=== PATIENT | male | born 1955 | race Two or more races ===

== ENCOUNTER 2018-12-03 16:45 | Emergency (ER) | payer MEDICAID ==
[~2018-12-03] VITALS: Ht 170.2 cm; Wt 79.4 kg
[~2018-12-03 16:45] MED LIST: ASPI-1265 PO; ATOR20TA PO; LANTUS SQ; LOP25T PO; METF500T PO; NORCO10T PO; [UNRECOGNIZED DRUG - CODE] PO
[2018-12-03 16:53] VITALS: BP 133/71
== END 2018-12-03 19:33 | disposition home or self-care (01) ==
LOC: ER 16:46
DX: G89.29 Other chronic pain (principal); M54.5 Low back pain; E11.42 Type 2 diabetes mellitus with diabetic polyneuropathy; I25.10 Atherosclerotic heart disease of native coronary artery without angina pectoris; I10 Essential (primary) hypertension; I25.2 Old myocardial infarction; Z90.49 Acquired absence of other specified parts of digestive tract; Z98.890 Other specified postprocedural states; Z95.5 Presence of coronary angioplasty implant and graft; Z79.82 Long term (current) use of aspirin; Z79.4 Long term (current) use of insulin; Z79.899 Other long term (current) drug therapy
CPT/HCPCS: 99281

== ENCOUNTER 2019-06-08 13:59 | Emergency (ER) | payer MEDICAID, OTHER ==
[~2019-06-08] VITALS: Ht 165.1 cm; Wt 76.7 kg
[~2019-06-08 13:59] MED LIST changes: +GABA800T11 PO; +HYDR-4353 PO; +INSU100V36 SQ; +LISI-644 PO; +METF1000 PO; +MULT-1085 PO
--- NOTE | 2019-06-08 14:48 | NUR ---
TO CT WITH PATIENT AT THIS TIME.
--- NOTE | 2019-06-08 14:59 | NUR ---
BACK TO ROOM FROM CT AT THIS ITNC, NO SIGNS OF DISTRESS NOTED.
[2019-06-08 15:26] LABS: BASOPHILS # (AUTO) 0.1 X10'3 (0-0.2); BASOPHILS % (AUTO) 1.2 % (0-1); EOSINOPHILS # (AUTO) 0.2 X10'3 (0-0.9); EOSINOPHILS % (AUTO) 2.5 % (0-6); HEMATOCRIT 39.7 % (42.0-52.0); HEMOGLOBIN 13.4 g/dl (14.0-17.9); LYMPHOCYTES # (AUTO) 2.9 X10'3 (1.1-4.8); LYMPHOCYTES % (AUTO) 31.6 % (21-51); MEAN CORPUSCULAR HEMOGLOBIN 30.1 PG (27.0-31.0); MEAN CORPUSCULAR HGB CONC 33.8 g/dL (33.0-36.5); MEAN PLATELET VOLUME 8.5 FL (7.4-10.4); MONOCYTES # (AUTO) 0.5 X10'3 (0-0.9); MONOCYTES % (AUTO) 5.2 % (2-12); NEUTROPHILS # (AUTO) 5.5 X10'3 (1.8-7.7); NEUTROPHILS % (AUTO) 59.5 % (42-75); PLATELET COUNT 271 X10'3 (140-440); RED BLOOD COUNT 4.46 X10'6 (4.70-6.10); RED CELL DISTRIBUTION WIDTH 14.3 % (11.5-14.5); WHITE BLOOD COUNT 9.2 X10'3 (4.5-11.0)
[2019-06-08 15:27] LABS: ALANINE AMINOTRANSFERASE 28 U/L (12-78); ALBUMIN 3.9 G/DL (3.4-5.0); ALBUMIN/GLOBULIN RATIO 1.4 (1.1-1.5); ALKALINE PHOSPHATASE 70 IU/L (46-116); ANION GAP 4 (8-16); ASPARTATE AMINO TRANSFERASE 15 U/L (10-37); BILIRUBIN,TOTAL 0.6 MG/DL (0.1-1.0); BLOOD UREA NITROGEN 13 MG/DL (7-18); BUN/CREATININE RATIO 15.9 (5.4-32.0); CALCIUM 8.4 MG/DL (8.5-10.1); CHLORIDE 103 MMOL/L (99-107); CREATININE 0.82 MG/DL (0.60-1.10); GLUCOSE 323 MG/DL (70-104); POTASSIUM 4.4 MMOL/L (3.5-5.1); SODIUM 137 MMOL/L (135-145); TOTAL CARBON DIOXIDE 29.6 MMOL/L (24-32); TOTAL PROTEIN 6.7 G/DL (6.4-8.2); eGFR > 90 ML/MIN
[2019-06-08 15:34] LABS: MAGNESIUM 1.7 MG/DL (1.5-2.4)
--- NOTE | 2019-06-08 15:46 | NUR ---
[phone]
[2019-06-08] MEDS ORDERED: HYDROcodone/acetaminophen 5mg/325mg tablet PO ONE (18:05)
[2019-06-08 18:18] VITALS: BP 162/86
[2019-06-08] MEDS ORDERED: insulin glargine (Lantus) pen - multi-dose SQ ONE (18:35)
== END 2019-06-08 18:56 | disposition home or self-care (01) ==
LOC: ER 14:00
DX: E11.65 Type 2 diabetes mellitus with hyperglycemia (principal); R55 Syncope and collapse; E11.43 Type 2 diabetes mellitus with diabetic autonomic (poly)neuropathy; I25.10 Atherosclerotic heart disease of native coronary artery without angina pectoris; I10 Essential (primary) hypertension; G89.29 Other chronic pain; Z79.82 Long term (current) use of aspirin; Z79.899 Other long term (current) drug therapy; Z79.4 Long term (current) use of insulin; Z90.49 Acquired absence of other specified parts of digestive tract
CPT/HCPCS: 36415; 70450; 71045; 80053; 82948; 83735; 83880; 84484; 85025; 93005; 96372; 99284; J1815

== ENCOUNTER 2020-03-28 12:41 | Emergency (ER) | payer MEDICAID, OTHER ==
[~2020-03-28] VITALS: Ht 167.6 cm; Wt 72.2 kg
[2020-03-28] MEDS ORDERED: proparacaine 0.5% ophthalmic drops 15ml EACHEYE ONE (14:05)
--- NOTE | 2020-03-28 14:40 | NUR ---
RELIEVING RN FOR BREAK, PT AMB WITH SLIGHTLY UNSTEADY GAIT TO TRIAGE AREA FOR VISUAL ACUITY PER DR LATIF, RT EYE 20/70, LT EYE20/30, BOTH EYES 20/30 DR LATIF AWARE, WAITING FOR CONSULTATION WITH EYE PROVIDER
--- NOTE | 2020-03-28 14:42 | NUR ---
VISUAL ACUITY DONE WITHOUT GLASSES, PT SAID HE USES GLASSES ONLY FOR READING
[2020-03-28 15:14] VITALS: BP 148/85
== END 2020-03-28 15:16 | disposition home or self-care (01) ==
LOC: ER 12:43
DX: H43.11 Vitreous hemorrhage, right eye (principal); R05 Cough; E11.42 Type 2 diabetes mellitus with diabetic polyneuropathy; I25.10 Atherosclerotic heart disease of native coronary artery without angina pectoris; I10 Essential (primary) hypertension; I25.2 Old myocardial infarction; G89.29 Other chronic pain; F17.200 Nicotine dependence, unspecified, uncomplicated; Z90.49 Acquired absence of other specified parts of digestive tract; Z98.890 Other specified postprocedural states; Z79.82 Long term (current) use of aspirin; Z79.4 Long term (current) use of insulin; Z79.899 Other long term (current) drug therapy
CPT/HCPCS: 99284

== ENCOUNTER 2020-05-02 15:29 | Emergency (ER) | payer MEDICAID ==
[~2020-05-02] VITALS: Ht 167.6 cm; Wt 0.7 kg
[2020-05-02] MEDS ORDERED: normal saline 1000ML IV soln IVB ONE (17:55)
[2020-05-02] MEDS ORDERED: normal saline 1000ml 1,000 ML IV ONE ×2 (18:10→19:10)
[2020-05-02 18:29] VITALS: BP 192/92
[2020-05-02 18:35] LABS: BASOPHILS # (AUTO) 0.1 X10'3 (0-0.2); BASOPHILS % (AUTO) 1.1 % (0-1); EOSINOPHILS # (AUTO) 0.2 X10'3 (0-0.9); EOSINOPHILS % (AUTO) 1.8 % (0-6); HEMATOCRIT 44.5 % (42.0-52.0); HEMOGLOBIN 14.8 g/dl (14.0-17.9); LYMPHOCYTES % (AUTO) 25.8 % (21-51); MEAN CORPUSCULAR HEMOGLOBIN 29.8 PG (27.0-31.0); MEAN CORPUSCULAR HGB CONC 33.3 g/dL (33.0-36.5); MEAN CORPUSCULAR VOLUME 89.8 FL (78-98); MEAN PLATELET VOLUME 9.1 FL (7.4-10.4); MONOCYTES # (AUTO) 0.8 X10'3 (0-0.9); MONOCYTES % (AUTO) 6.7 % (2-12); NEUTROPHILS # (AUTO) 7.4 X10'3 (1.8-7.7); NEUTROPHILS % (AUTO) 64.6 % (42-75); PLATELET COUNT 247 X10'3 (140-440); RED BLOOD COUNT 4.96 X10'6 (4.70-6.10); RED CELL DISTRIBUTION WIDTH 14.5 % (11.5-14.5); WHITE BLOOD COUNT 11.5 X10'3 (4.5-11.0)
[2020-05-02 18:55] LABS: ALANINE AMINOTRANSFERASE 24 U/L (12-78); ALBUMIN 4.1 G/DL (3.4-5.0); ALBUMIN/GLOBULIN RATIO 1.3 (1.1-1.5); ALKALINE PHOSPHATASE 98 IU/L (46-116); ANION GAP 5 (8-16); ASPARTATE AMINO TRANSFERASE 15 U/L (10-37); BILIRUBIN,TOTAL 0.6 MG/DL (0.1-1.0); BLOOD UREA NITROGEN 17 MG/DL (7-18); BUN/CREATININE RATIO 13.2 (5.4-32.0); CALCIUM 8.7 MG/DL (8.5-10.1); CHLORIDE 98 MMOL/L (99-107); CREATININE 1.29 MG/DL (0.60-1.10); POTASSIUM 4.3 MMOL/L (3.5-5.1); SODIUM 134 MMOL/L (135-145); TOTAL CARBON DIOXIDE 30.9 MMOL/L (24-32); TOTAL PROTEIN 7.3 G/DL (6.4-8.2); eGFR 56 ML/MIN
[2020-05-02 18:57] LABS: CLARITY,URINE CLEAR (Clear); COLOR,URINE STRAW (Yellow); GLUCOSE, URINE >=1000 mg/dl (Neg); KETONES,URINE NEGATIVE (Neg); LEUKOCYTE ESTERASE ,URINE NEGATIVE (Neg); NITRITES, URINE NEGATIVE (Neg); OCCULT BLOOD,URINE NEGATIVE (Neg); PROTEIN,URINE NEGATIVE (Neg); UROBILINOGEN,URINE 0.2 E.U/dL (0.2-1.0)
[2020-05-02 19:00] LABS: UA COLLECTION TYPE CLN CATCH MIDSTREAM
[2020-05-02 19:02] LABS: SQUAMOUS EPITHELIAL CELL,UR FEW /LPF (FEW)
[2020-05-02 19:04] LABS: GLUCOSE 575 MG/DL (70-104)
[2020-05-02 19:04] LABS: BACTERIA,URINE NONE SEEN /HPF (Neg); MUCUS STRANDS NONE SEEN /LPF (Neg); RBC,URINE 0-2 /HPF (0-2); WBC,URINE 0-4 /HPF (0-4)
[2020-05-02] MEDS ORDERED: insulin regular, human 10 units/0.1 ml syringe SQ ONE (19:10)
[2020-05-02] MEDS ORDERED: acetaminophen 325mg tablet PO ONE (19:35)
== END 2020-05-02 20:10 | disposition home or self-care (01) ==
LOC: ER 15:30
DX: E11.65 Type 2 diabetes mellitus with hyperglycemia (principal); G62.9 Polyneuropathy, unspecified; I25.10 Atherosclerotic heart disease of native coronary artery without angina pectoris; I10 Essential (primary) hypertension; I21.9 Acute myocardial infarction, unspecified; E11.9 Type 2 diabetes mellitus without complications; G89.29 Other chronic pain; M54.9 Dorsalgia, unspecified; Z90.49 Acquired absence of other specified parts of digestive tract; Z79.899 Other long term (current) drug therapy; Z79.82 Long term (current) use of aspirin; Z79.84 Long term (current) use of oral hypoglycemic drugs
CPT/HCPCS: 36415; 80053; 81001; 82948; 85025; 93005; 96360; 96361; 96372; 99285; J1815; J7030; 71045

== ENCOUNTER 2022-11-07 15:00 | Emergency (ER) | payer MEDICAID ==
[~2022-11-07] VITALS: Ht 170.2 cm; Wt 81.4 kg
[2022-11-07 15:39] LABS: BASOPHILS # (AUTO) 0.1 X10'3 (0-0.2); BASOPHILS % (AUTO) 1.2 % (0-1); EOSINOPHILS # (AUTO) 0.2 X10'3 (0-0.9); EOSINOPHILS % (AUTO) 2.5 % (0-6); HEMATOCRIT 35.8 % (42.0-52.0); HEMOGLOBIN 11.7 g/dl (14.0-17.9); LYMPHOCYTES # (AUTO) 2.5 X10'3 (1.1-4.8); LYMPHOCYTES % (AUTO) 32.5 % (21-51); MEAN CORPUSCULAR HEMOGLOBIN 28.8 PG (27.0-31.0); MEAN CORPUSCULAR HGB CONC 32.8 g/dL (33.0-36.5); MEAN CORPUSCULAR VOLUME 87.7 FL (78-98); MEAN PLATELET VOLUME 8.5 FL (7.4-10.4); MONOCYTES # (AUTO) 0.7 X10'3 (0-0.9); MONOCYTES % (AUTO) 8.8 % (2-12); NEUTROPHILS # (AUTO) 4.3 X10'3 (1.8-7.7); PLATELET COUNT 294 X10'3 (140-440); RED BLOOD COUNT 4.08 X10'6 (4.70-6.10); RED CELL DISTRIBUTION WIDTH 15.6 % (11.5-14.5); WHITE BLOOD COUNT 7.8 X10'3 (4.5-11.0)
[2022-11-07 16:12] LABS: ALANINE AMINOTRANSFERASE 40 U/L (12-78); ALBUMIN 4.1 G/DL (3.4-5.0); ALBUMIN/GLOBULIN RATIO 1.4 (1.1-1.5); ALKALINE PHOSPHATASE 51 IU/L (46-116); ANION GAP 5 (8-16); ASPARTATE AMINO TRANSFERASE 25 U/L (10-37); BILIRUBIN,TOTAL 0.6 MG/DL (0.1-1.0); BLOOD UREA NITROGEN 20 MG/DL (7-18); BUN/CREATININE RATIO 18.5 (10.0-20.0); CALCIUM 8.8 MG/DL (8.5-10.1); CHLORIDE 105 MMOL/L (99-107); CREATININE 1.08 MG/DL (0.60-1.10); GLUCOSE 96 MG/DL (70-104); POTASSIUM 4.7 MMOL/L (3.5-5.1); SODIUM 141 MMOL/L (135-145); TOTAL CARBON DIOXIDE 30.8 MMOL/L (24-32); eGFR 69 ML/MIN
[2022-11-07 17:22] VITALS: BP 158/72
== END 2022-11-07 18:34 | disposition home or self-care (01) ==
LOC: ER 15:00
DX: R55 Syncope and collapse (principal); I25.10 Atherosclerotic heart disease of native coronary artery without angina pectoris; I10 Essential (primary) hypertension; I25.2 Old myocardial infarction; E11.9 Type 2 diabetes mellitus without complications; G89.29 Other chronic pain; Z90.49 Acquired absence of other specified parts of digestive tract; Z98.890 Other specified postprocedural states; Z79.82 Long term (current) use of aspirin; Z79.4 Long term (current) use of insulin; Z79.899 Other long term (current) drug therapy
CPT/HCPCS: 36415; 71045; 73564; 80053; 83880; 84484; 85025; 93005; 99285

== ENCOUNTER 2023-02-05 21:35 | Emergency (ER) | payer MEDICAID ==
[~2023-02-05] VITALS: Ht 167.6 cm; Wt 68.2 kg
[2023-02-05 21:49] VITALS: TEMP 98
[2023-02-05 22:53] LABS: BASOPHILS # (AUTO) 0.1 X10'3 (0-0.2); BASOPHILS % (AUTO) 1.2 % (0-1); EOSINOPHILS # (AUTO) 0.3 X10'3 (0-0.9); EOSINOPHILS % (AUTO) 3.5 % (0-6); HEMATOCRIT 38.4 % (42.0-52.0); HEMOGLOBIN 12.6 g/dl (14.0-17.9); LYMPHOCYTES # (AUTO) 2.9 X10'3 (1.1-4.8); LYMPHOCYTES % (AUTO) 33.2 % (21-51); MEAN CORPUSCULAR HGB CONC 32.9 g/dL (33.0-36.5); MEAN PLATELET VOLUME 8.5 FL (7.4-10.4); MONOCYTES # (AUTO) 0.6 X10'3 (0-0.9); MONOCYTES % (AUTO) 6.7 % (2-12); NEUTROPHILS # (AUTO) 4.9 X10'3 (1.8-7.7); NEUTROPHILS % (AUTO) 55.4 % (42-75); PLATELET COUNT 389 X10'3 (140-440); RED BLOOD COUNT 4.37 X10'6 (4.70-6.10); RED CELL DISTRIBUTION WIDTH 15.1 % (11.5-14.5); WHITE BLOOD COUNT 8.8 X10'3 (4.5-11.0)
[2023-02-05 23:06] LABS: ALANINE AMINOTRANSFERASE 17 U/L (12-78); ALBUMIN 3.5 G/DL (3.4-5.0); ALBUMIN/GLOBULIN RATIO 0.9 (1.1-1.5); ALKALINE PHOSPHATASE 68 IU/L (46-116); ANION GAP 9 (8-16); ASPARTATE AMINO TRANSFERASE 13 U/L (10-37); BILIRUBIN,TOTAL 0.3 MG/DL (0.1-1.0); BLOOD UREA NITROGEN 24 MG/DL (7-18); BUN/CREATININE RATIO 18.5 (10.0-20.0); CALCIUM 8.7 MG/DL (8.5-10.1); CHLORIDE 100 MMOL/L (99-107); GLUCOSE 242 MG/DL (70-104); LIPASE < 50 U/L (73-393); POTASSIUM 4.7 MMOL/L (3.5-5.1); SODIUM 140 MMOL/L (135-145); TOTAL CARBON DIOXIDE 31.3 MMOL/L (24-32); TOTAL PROTEIN 7.5 G/DL (6.4-8.2); eCRCL 51 ML/MIN; eGFR 55 ML/MIN
[2023-02-06 00:39] LABS: BILIRUBIN,URINE NEGATIVE (Neg); CLARITY,URINE SLIGHTLY CLOUDY (Clear); COLOR,URINE YELLOW (Yellow); GLUCOSE, URINE 500 mg/dl (Neg); KETONES,URINE NEGATIVE (Neg); LEUKOCYTE ESTERASE ,URINE NEGATIVE (Neg); NITRITES, URINE NEGATIVE (Neg); OCCULT BLOOD,URINE NEGATIVE (Neg); PH,URINE 5.5 (4.8-8.0); PROTEIN,URINE 100 mg/dl (Neg); UROBILINOGEN,URINE 0.2 E.U/dL (0.2-1.0)
[2023-02-06] MEDS ORDERED: acetaminophen 325mg tablet PO ONE (00:40)
[2023-02-06] MEDS ORDERED: ketorolac trometh. 30mg/ml inj. IV ONE (00:40)
[2023-02-06] MEDS ORDERED: ondansetron/PF 4mg/2ml inj IV ONE (00:40)
[2023-02-06] MEDS ORDERED: normal saline 1000ml 1,000 ML IV ONE (00:40)
[2023-02-06 00:45] LABS: UA COLLECTION TYPE CLN CATCH MIDSTREAM
[2023-02-06 00:46] LABS: HYALINE CASTS >30 /LPF (NEGATIVE); SQUAMOUS EPITHELIAL CELL,UR FEW /LPF (FEW)
[2023-02-06 00:47] LABS: AMORPHOUS URATES 1+; BACTERIA,URINE NONE SEEN /HPF (Neg); WBC,URINE 0-4 /HPF (0-4)
[2023-02-06] MEDS ORDERED: morphine 4 MG/ML inj SYRINge IV ONE (02:40)
[2023-02-06] MEDS ORDERED: methylnaltrexone br 12mg/0.6ml inj***SubQ only SQ ONE (04:10)
[2023-02-06] MEDS ORDERED: bisacodyl 5mg tablet.DR PO ONE (04:10)
[2023-02-06] MEDS ORDERED: DOCU-171 PO (04:12)
[2023-02-06 04:41] VITALS: BP 100/59; PULSE 70; RESP 16; O2SAT 100
== END 2023-02-06 04:43 | disposition home or self-care (01) ==
LOC: ER 21:36
DX: K59.00 Constipation, unspecified (principal); R10.12 Left upper quadrant pain; I10 Essential (primary) hypertension; E11.9 Type 2 diabetes mellitus without complications; Z79.82 Long term (current) use of aspirin; Z79.899 Other long term (current) drug therapy; Z79.84 Long term (current) use of oral hypoglycemic drugs; Z90.49 Acquired absence of other specified parts of digestive tract
CPT/HCPCS: 36415; 74176; 80053; 81001; 83690; 85025; 96361; 96372; 96374; 96375; 99285; J1885; J2212; J2270; J2405; J7030

== ENCOUNTER 2023-08-08 12:34 | Inpatient (IN) | payer MEDICAID ==
[~2023-08-08] VITALS: Ht 170.2 cm; Wt 74.2 kg
[~2023-08-08 12:34] MED LIST changes: +CARB100T50 PO; +CLOP75TA34 PO; +DOCU-171 PO; +GABA600T13 PO; -GABA800T11 PO; +HYDR-3972 PO; -HYDR-4353 PO; +KEN0.1O TOP; -LISI-644 PO; +LISI5TAB22 PO; -LOP25T PO; -METF1000 PO; -METF500T PO; -NORCO10T PO; -[UNRECOGNIZED DRUG - CODE] PO
[2023-08-08] MEDS: normal saline 1000ml 1,000 ML IV ONE (13:20)
[2023-08-08 13:56] LABS: BASOPHILS # (AUTO) 0.1 X10'3 (0-0.2); BASOPHILS % (AUTO) 0.9 % (0-1); EOSINOPHILS % (AUTO) 0.4 % (0-6); HEMATOCRIT 23.6 % (42.0-52.0); HEMOGLOBIN 7.6 g/dl (14.0-17.9); LYMPHOCYTES # (AUTO) 1.4 X10'3 (1.1-4.8); LYMPHOCYTES % (AUTO) 14.9 % (21-51); MEAN CORPUSCULAR HEMOGLOBIN 26.2 PG (27.0-31.0); MEAN CORPUSCULAR HGB CONC 32.3 g/dL (33.0-36.5); MEAN PLATELET VOLUME 7.4 FL (7.4-10.4); MONOCYTES # (AUTO) 0.6 X10'3 (0-0.9); MONOCYTES % (AUTO) 6.1 % (2-12); NEUTROPHILS # (AUTO) 7.3 X10'3 (1.8-7.7); NEUTROPHILS % (AUTO) 77.7 % (42-75); PLATELET COUNT 481 X10'3 (140-440); RED BLOOD COUNT 2.91 X10'6 (4.70-6.10); RED CELL DISTRIBUTION WIDTH 17.6 % (11.5-14.5); WHITE BLOOD COUNT 9.4 X10'3 (4.5-11.0)
[2023-08-08 13:56] LABS: BILIRUBIN,URINE NEGATIVE (Neg); CLARITY,URINE CLEAR (Clear); COLOR,URINE YELLOW (Yellow); GLUCOSE, URINE NEGATIVE (Neg); KETONES,URINE NEGATIVE (Neg); LEUKOCYTE ESTERASE ,URINE NEGATIVE (Neg); NITRITES, URINE NEGATIVE (Neg); OCCULT BLOOD,URINE NEGATIVE (Neg); PROTEIN,URINE 100 mg/dl (Neg); UROBILINOGEN,URINE 0.2 E.U/dL (0.2-1.0)
[2023-08-08 13:59] LABS: UA COLLECTION TYPE VOIDED
[2023-08-08 14:01] LABS: BACTERIA,URINE NONE SEEN /HPF (Neg)
[2023-08-08 14:02] LABS: SQUAMOUS EPITHELIAL CELL,UR MODERATE /LPF (FEW); TRANSITIONAL EPI CELLS,URINE FEW /HPF
[2023-08-08 14:10] LABS: URINE AMPHETAMINE SCREEN NEGATIVE (Neg); URINE BARBITUATE SCREEN NEGATIVE (Neg); URINE BENZODIAZEPINES SCREEN NEGATIVE (Neg); URINE CANNABINOID SCREEN NEGATIVE (Neg); URINE COCAINE SCREEN NEGATIVE (Neg); URINE METHADONE SCREEN NEGATIVE (Neg); URINE OPIATE SCREEN POSITIVE (Neg); URINE PHENCYCLIDINE SCREEN NEGATIVE (Neg)
[2023-08-08 14:14] LABS: ALANINE AMINOTRANSFERASE 30 U/L (12-78); ALBUMIN 2.3 G/DL (3.4-5.0); ALBUMIN/GLOBULIN RATIO 0.4 (1.1-1.5); ALKALINE PHOSPHATASE 171 IU/L (46-116); ANION GAP 5 (8-16); ASPARTATE AMINO TRANSFERASE 37 U/L (10-37); BILIRUBIN,DIRECT 0.1 MG/DL (0-0.3); BILIRUBIN,TOTAL 0.3 MG/DL (0.1-1.0); BLOOD UREA NITROGEN 64 MG/DL (7-18); BUN/CREATININE RATIO 48.5 (10.0-20.0); C-REACTIVE PROTEIN 9.01 MG/DL (0.0-0.5); CALCIUM 7.7 MG/DL (8.5-10.1); CHLORIDE 103 MMOL/L (99-107); CREATININE 1.32 MG/DL (0.60-1.10); GLUCOSE 174 MG/DL (70-104); MAGNESIUM 2.1 MG/DL (1.5-2.4); POTASSIUM 4.5 MMOL/L (3.5-5.1); SODIUM 137 MMOL/L (135-145); TOTAL CARBON DIOXIDE 28.6 MMOL/L (24-32); TOTAL PROTEIN 7.8 G/DL (6.4-8.2); eCRCL 52 ML/MIN; eGFR 54 ML/MIN
[2023-08-08] MEDS: acetaminophen 325mg tablet PO ONE (15:06)
[2023-08-08] MEDS: cefazolin 2gm/D5W 100mL 100 ML IV ONE (16:00)
[2023-08-08] MEDS ORDERED: morphine 2 MG/ML inj. syringe IV PRN ×2 (17:00)
[2023-08-08] MEDS ORDERED: magnesium 4gm in 100ml NS 100 ML IV PRN (17:00)
[2023-08-08] MEDS ORDERED: diphenhydrAMINE 25mg capsule PO PRN (17:00)
[2023-08-08] MEDS ORDERED: bisacodyl 10mg suppository rectal RC PRN (17:00)
[2023-08-08] MEDS ORDERED: glucagon, human recombinant 1mg kit SUBCUT PRN (17:00)
[2023-08-08] MEDS: normal saline 1000ml 1,000 ML IV SCH (17:00)
[2023-08-08] MEDS ORDERED: magnesium 2GM in 50ml NS 50 ML IV PRN (17:00)
[2023-08-08] MEDS ORDERED: dextrose 50%-water 50ml dispensing syringe IV PRN ×2 (17:00)
[2023-08-08] MEDS: MESSAGE TO PHARMACY PO ONE (17:00)
[2023-08-08] MEDS ORDERED: mag hydrox/Alum hydrox/simeth 30ml oral suspension PO PRN (17:00)
[2023-08-08] MEDS ORDERED: DEXTROSE 15 GM of carb/4 tabs (each vial/BOTTLE has 4 tablets) PO PRN ×2 (17:00)
[2023-08-08] MEDS ORDERED: magnesium Cl slow-release 64mg tablet PO PRN (17:00)
[2023-08-08] MEDS ORDERED: potassium Cl 40MEQ/1/2NS 520ml 520 ML IV PRN (17:00)
[2023-08-08] MEDS ORDERED: magnesium hydroxide 30ml (MOM) UD suspension PO PRN (17:00)
[2023-08-08] MEDS ORDERED: acetaminophen 325mg tablet PO PRN ×2 (17:00)
[2023-08-08] MEDS ORDERED: potassium Cl 20 mEq SR tablet PO PRN ×2 (17:00)
[2023-08-08] MEDS: mupirocin 2% ointment 22GM TP ONE (17:50)
[2023-08-08] MEDS: K and/or MAG REPLACEMENT MC SCH (20:00)
[2023-08-08] MEDS ORDERED: cefepime 2g/NS 100ml ADVANTAGE 100 ML IV ONE (20:00)
[2023-08-08] MEDS ORDERED: metroNIDAZOLE-Flagyl 500mg/NS 100 ML IV ONE (20:00)
[2023-08-08] MEDS: docusate sod 100mg capsule PO SCH (20:00)
[2023-08-08] MEDS: insulin glargine (Lantus) pen - multi-dose SQ SCH (21:00)
[2023-08-08] MEDS: metroNIDAZOLE-Flagyl 500mg/NS 100 ML IV SCH (21:00)
[2023-08-08] MEDS: morphine 4 MG/ML inj SYRINge IV ONE (21:07)
[2023-08-08] MEDS: cefepime 1GM/NS ADD-VANTAGE 100 ML IV SCH (22:16)
[2023-08-08] MEDS: vancomycin/NS 1 GM ADD-VANTAGE 250 ML IV SCH (22:17)
[2023-08-09] MEDS: heparin, porcine 5000 units/ml vial SQ SCH (00:20)
[2023-08-09 04:08] LABS: BILIRUBIN,URINE NEGATIVE (Neg); CLARITY,URINE CLEAR (Clear); COLOR,URINE YELLOW (Yellow); GLUCOSE, URINE NEGATIVE (Neg); KETONES,URINE NEGATIVE (Neg); LEUKOCYTE ESTERASE ,URINE NEGATIVE (Neg); NITRITES, URINE NEGATIVE (Neg); OCCULT BLOOD,URINE TRACE-INTACT (Neg); PH,URINE 5.5 (4.8-8.0); PROTEIN,URINE 30 mg/dl (Neg); UROBILINOGEN,URINE 0.2 E.U/dL (0.2-1.0)
[2023-08-09 04:11] LABS: UA COLLECTION TYPE VOIDED
[2023-08-09 04:15] LABS: BACTERIA,URINE FEW /HPF (Neg); SQUAMOUS EPITHELIAL CELL,UR FEW /LPF (FEW); TRANSITIONAL EPI CELLS,URINE FEW /HPF
[2023-08-09] MEDS: HYDROcodone/acetaminophen 10/325mg tab PO PRN (07:53)
[2023-08-09] MEDS ORDERED: levoFLOXACIN-Levaquin 250mg/D5 50 ML IV ONE (08:00)
[2023-08-09 09:34] LABS: BASOPHILS % (AUTO) 0.3 % (0-1); EOSINOPHILS % (AUTO) 0.2 % (0-6); HEMATOCRIT 23.1 % (42.0-52.0); HEMOGLOBIN 7.5 g/dl (14.0-17.9); LYMPHOCYTES # (AUTO) 1.8 X10'3 (1.1-4.8); LYMPHOCYTES % (AUTO) 17.7 % (21-51); MEAN CORPUSCULAR HEMOGLOBIN 26.3 PG (27.0-31.0); MEAN CORPUSCULAR HGB CONC 32.2 g/dL (33.0-36.5); MEAN CORPUSCULAR VOLUME 81.7 FL (78-98); MEAN PLATELET VOLUME 7.2 FL (7.4-10.4); MONOCYTES # (AUTO) 0.9 X10'3 (0-0.9); MONOCYTES % (AUTO) 8.2 % (2-12); NEUTROPHILS # (AUTO) 7.7 X10'3 (1.8-7.7); NEUTROPHILS % (AUTO) 73.6 % (42-75); PLATELET COUNT 479 X10'3 (140-440); RED BLOOD COUNT 2.83 X10'6 (4.70-6.10); RED CELL DISTRIBUTION WIDTH 17.7 % (11.5-14.5); WHITE BLOOD COUNT 10.5 X10'3 (4.5-11.0)
[2023-08-09 09:57] LABS: ALANINE AMINOTRANSFERASE 25 U/L (12-78); ALBUMIN 2.1 G/DL (3.4-5.0); ALBUMIN/GLOBULIN RATIO 0.4 (1.1-1.5); ALKALINE PHOSPHATASE 166 IU/L (46-116); ANION GAP 9 (8-16); ASPARTATE AMINO TRANSFERASE 41 U/L (10-37); BILIRUBIN,TOTAL 0.3 MG/DL (0.1-1.0); BLOOD UREA NITROGEN 46 MG/DL (7-18); BUN/CREATININE RATIO 40.4 (10.0-20.0); CALCIUM 7.3 MG/DL (8.5-10.1); CHLORIDE 109 MMOL/L (99-107); CREATININE 1.14 MG/DL (0.60-1.10); GLUCOSE 180 MG/DL (70-104); PHOSPHORUS 3.2 MG/DL (2.3-4.5); SODIUM 142 MMOL/L (135-145); TOTAL CARBON DIOXIDE 24.4 MMOL/L (24-32); TOTAL PROTEIN 7.5 G/DL (6.4-8.2); eCRCL 60 ML/MIN; eGFR 64 ML/MIN
[2023-08-09] MEDS ORDERED: AMLO2.5T2 PO (10:22)
[2023-08-09] MEDS ORDERED: LANTUS SUBCUT (10:34)
[2023-08-09] MEDS ORDERED: DOCU100C40 PO (10:34)
[2023-08-09] MEDS ORDERED: FURO20TA4 PO (10:34)
[2023-08-09] MEDS ORDERED: [UNRECOGNIZED DRUG - CODE] PO (10:34)
[2023-08-09] MEDS ORDERED: INSU100I61 (10:34)
[2023-08-09] MEDS ORDERED: LOP12.5T PO (10:34)
[2023-08-09] MEDS ORDERED: MULT-18 PO (10:41)
[2023-08-09] MEDS ORDERED: METR-349 PO (10:41)
[2023-08-09] MEDS ORDERED: WARF6TAB49 PO (10:41)
[2023-08-09] MEDS ORDERED: LEVO-65 PO (10:41)
[2023-08-09] MEDS: insulin Lispro (HumaLOG) vial - multi-dose SQ SCH (14:36)
[2023-08-09 19:05] LABS: INR 3.4 INR; PROTHROMBIN TIME 33.9 SECONDS (9.0-12.0)
[2023-08-09] MEDS: ringers solution, lacted 1,000 ML IV ONE (19:42)
[2023-08-09] MEDS ORDERED: albumin (human) 25% 100ml IV 100 ML IV ONE ×4 (19:45→19:50)
[2023-08-09 19:50] LABS: D-DIMER 0.72 MG/L FEU (0-0.50)
[2023-08-09] MEDS: metoprolol tartrate 12.5mg (1/2 tablet) PO SCH (20:00)
[2023-08-09 20:15] LABS: OSMOLALITY 312 MOSM/K (280-300)
[2023-08-09] MEDS: albumin (human) 25% 100ml IV 100 ML in normal saline 500ml IV soln 400 ML IV ONE (20:39)
[2023-08-09] MEDS ORDERED: warfarin 3mg tablet PO SCH (21:00)
[2023-08-09] MEDS: gabapentin 400mg capsule PO SCH (22:07)
[2023-08-09] MEDS: warfarin 4mg tablet PO ONE (22:10)
[2023-08-09 23:20] VITALS: BP 122/64; PULSE 101; RESP 16; TEMP 99.5; O2SAT 99
[2023-08-09] MEDS: HYDROcodone/acetaminophen 5mg/325mg tablet PO PRN (23:40)
[2023-08-09] MEDS: ondansetron/PF 4mg/2ml inj IV PRN (23:49)
[2023-08-10] VITALS (11 sets, daily range): BP systolic 95–150; BP diastolic 44–104; PULSE 82–96; RESP 16–18; TEMP 97.7–98.7; O2SAT 93–100
[2023-08-10] MEDS: normal saline 1000ml 1,000 ML IV SCH (02:00)
[2023-08-10] MEDS: VANCOMYCIN LEVEL IV ONE (04:30)
[2023-08-10 07:12] LABS: BASOPHILS # (AUTO) 0.1 X10'3 (0-0.2); BASOPHILS % (AUTO) 1.4 % (0-1); EOSINOPHILS % (AUTO) 0.3 % (0-6); LYMPHOCYTES # (AUTO) 2.4 X10'3 (1.1-4.8); LYMPHOCYTES % (AUTO) 28.8 % (21-51); MEAN CORPUSCULAR HEMOGLOBIN 26.8 PG (27.0-31.0); MEAN CORPUSCULAR HGB CONC 32.6 g/dL (33.0-36.5); MEAN CORPUSCULAR VOLUME 82.3 FL (78-98); MEAN PLATELET VOLUME 7.3 FL (7.4-10.4); MONOCYTES # (AUTO) 0.8 X10'3 (0-0.9); MONOCYTES % (AUTO) 9.7 % (2-12); NEUTROPHILS % (AUTO) 59.8 % (42-75); PLATELET COUNT 433 X10'3 (140-440); RED CELL DISTRIBUTION WIDTH 17.8 % (11.5-14.5); WHITE BLOOD COUNT 8.3 X10'3 (4.5-11.0)
[2023-08-10 07:20] LABS: INR 3.9 INR; PROTHROMBIN TIME 38.8 SECONDS (9.0-12.0)
[2023-08-10] MEDS: clopidogrel 75mg tablet PO SCH (07:23)
[2023-08-10] MEDS: atorvastatin 20mg tablet PO SCH (07:23)
[2023-08-10] MEDS: aspirin 81mg, enteric-coated 1 TAB TABLET.DR PO SCH (07:24)
[2023-08-10 07:25] LABS: ALANINE AMINOTRANSFERASE 215 U/L (12-78); ALBUMIN 2.2 G/DL (3.4-5.0); ALBUMIN/GLOBULIN RATIO 0.5 (1.1-1.5); ALKALINE PHOSPHATASE 568 IU/L (46-116); ANION GAP 7 (8-16); ASPARTATE AMINO TRANSFERASE 592 U/L (10-37); BILIRUBIN,TOTAL 0.6 MG/DL (0.1-1.0); BLOOD UREA NITROGEN 46 MG/DL (7-18); BUN/CREATININE RATIO 36.8 (10.0-20.0); CALCIUM 7.3 MG/DL (8.5-10.1); CHLORIDE 111 MMOL/L (99-107); CREATININE 1.25 MG/DL (0.60-1.10); GLUCOSE 167 MG/DL (70-104); POTASSIUM 4.1 MMOL/L (3.5-5.1); SODIUM 142 MMOL/L (135-145); TOTAL CARBON DIOXIDE 23.8 MMOL/L (24-32); TOTAL PROTEIN 6.8 G/DL (6.4-8.2); eCRCL 55 ML/MIN; eGFR 58 ML/MIN
[2023-08-10 07:26] LABS: MAGNESIUM 2.2 MG/DL (1.5-2.4); PHOSPHORUS 3.3 MG/DL (2.3-4.5); VANCOMYCIN,TROUGH 21.6 ug/mL (10.0-20.0)
[2023-08-10 07:33] LABS: HEMATOCRIT 18.1 % (42.0-52.0); HEMOGLOBIN 5.9 g/dl (14.0-17.9)
[2023-08-10] MEDS: CARBAMAZEPINE 100 MG PO SCH (07:33)
[2023-08-10] MEDS ORDERED: amLODIPine 5mg tablet PO SCH (08:00)
[2023-08-10] MEDS ORDERED: lisinopril 5mg tablet PO SCH (08:00)
[2023-08-10 08:53] LABS: PRO BRAIN NATRIURETIC PEPTIDE 16842 PG/ML (0-125)
[2023-08-10 09:16] LABS: MEAN CORPUSCULAR HEMOGLOBIN 27.3 PG (27.0-31.0); MEAN CORPUSCULAR HGB CONC 33.2 g/dL (33.0-36.5); MEAN CORPUSCULAR VOLUME 82.1 FL (78-98); MEAN PLATELET VOLUME 7.4 FL (7.4-10.4); PLATELET COUNT 460 X10'3 (140-440); RED BLOOD COUNT 2.53 X10'6 (4.70-6.10); RED CELL DISTRIBUTION WIDTH 17.6 % (11.5-14.5); WHITE BLOOD COUNT 9.5 X10'3 (4.5-11.0)
[2023-08-10 09:31] LABS: HEMATOCRIT 20.8 % (42.0-52.0); HEMOGLOBIN 6.9 g/dl (14.0-17.9)
[2023-08-10 12:04] LABS: OCCULT BLOOD STOOL NEGATIVE (Neg)
[2023-08-10] MEDS ORDERED: morphine 2 MG/ML inj. syringe IV PRN (12:40)
[2023-08-10] MEDS: HYDROcodone/acetaminophen 10/325mg tab PO PRN (14:07)
[2023-08-10 14:46] LABS: PRO BRAIN NATRIURETIC PEPTIDE 13967 PG/ML (0-125)
[2023-08-10] MEDS: metroNIDAZOLE 500mg tablet PO SCH (16:59)
[2023-08-10] MEDS: VANCOMYCIN 750MG IV in NS 250 ML IV SCH (17:00)
[2023-08-10 19:41] LABS: HEMOGLOBIN 7.2 g/dl (14.0-17.9); MEAN CORPUSCULAR HEMOGLOBIN 26.9 PG (27.0-31.0); MEAN CORPUSCULAR VOLUME 81.8 FL (78-98); MEAN PLATELET VOLUME 7.3 FL (7.4-10.4); PLATELET COUNT 419 X10'3 (140-440); RED BLOOD COUNT 2.69 X10'6 (4.70-6.10); RED CELL DISTRIBUTION WIDTH 16.9 % (11.5-14.5)
[2023-08-10] MEDS: morphine 2 MG/ML inj. syringe IV PRN (20:28)
[2023-08-11 06:00] VITALS: BP 123/61; PULSE 95; RESP 16; TEMP 98; O2SAT 91
[2023-08-11 06:00] LABS: PROTHROMBIN TIME 39.2 SECONDS (9.0-12.0)
[2023-08-11 06:08] LABS: BASOPHILS # (AUTO) 0.1 X10'3 (0-0.2); BASOPHILS % (AUTO) 1.2 % (0-1); EOSINOPHILS # (AUTO) 0.2 X10'3 (0-0.9); EOSINOPHILS % (AUTO) 2.2 % (0-6); HEMOGLOBIN 8.2 g/dl (14.0-17.9); LYMPHOCYTES # (AUTO) 2.5 X10'3 (1.1-4.8); LYMPHOCYTES % (AUTO) 24.6 % (21-51); MEAN CORPUSCULAR HEMOGLOBIN 26.6 PG (27.0-31.0); MEAN CORPUSCULAR HGB CONC 32.7 g/dL (33.0-36.5); MEAN CORPUSCULAR VOLUME 81.3 FL (78-98); MEAN PLATELET VOLUME 7.4 FL (7.4-10.4); MONOCYTES # (AUTO) 0.9 X10'3 (0-0.9); MONOCYTES % (AUTO) 9.1 % (2-12); NEUTROPHILS # (AUTO) 6.3 X10'3 (1.8-7.7); NEUTROPHILS % (AUTO) 62.9 % (42-75); PLATELET COUNT 454 X10'3 (140-440); RED BLOOD COUNT 3.08 X10'6 (4.70-6.10); RED CELL DISTRIBUTION WIDTH 17.5 % (11.5-14.5); WHITE BLOOD COUNT 10.1 X10'3 (4.5-11.0)
[2023-08-11 06:26] LABS: ALANINE AMINOTRANSFERASE 168 U/L (12-78); ALBUMIN 2.4 G/DL (3.4-5.0); ALBUMIN/GLOBULIN RATIO 0.5 (1.1-1.5); ALKALINE PHOSPHATASE 569 IU/L (46-116); ANION GAP 9 (8-16); ASPARTATE AMINO TRANSFERASE 250 U/L (10-37); BILIRUBIN,TOTAL 0.5 MG/DL (0.1-1.0); BLOOD UREA NITROGEN 45 MG/DL (7-18); BUN/CREATININE RATIO 33.1 (10.0-20.0); CALCIUM 7.2 MG/DL (8.5-10.1); CHLORIDE 108 MMOL/L (99-107); CREATININE 1.36 MG/DL (0.60-1.10); GLUCOSE 142 MG/DL (70-104); MAGNESIUM 2.1 MG/DL (1.5-2.4); PHOSPHORUS 2.8 MG/DL (2.3-4.5); SODIUM 138 MMOL/L (135-145); TOTAL CARBON DIOXIDE 21.3 MMOL/L (24-32); TOTAL PROTEIN 7.6 G/DL (6.4-8.2); eCRCL 51 ML/MIN; eGFR 53 ML/MIN
[2023-08-11 07:45] VITALS: RESP 16; O2SAT 91
[2023-08-11] MEDS ORDERED: mupirocin 2% nasal ointment 1gm UD NS SCH (08:55)
[2023-08-11 09:40] VITALS: BP 136/66; PULSE 81; RESP 16; TEMP 98.1; O2SAT 93
[2023-08-11] MEDS ORDERED: iohexol 300mg/ml 100ml inj. ONE (11:02)
[2023-08-11] MEDS: lactose-reduced food (Ensure Enlive) - 237ml bottle PO SCH (17:53)
[2023-08-11 19:30] VITALS: BP 135/73; PULSE 90; RESP 17; TEMP 97.9; O2SAT 99
[2023-08-11 20:00] VITALS: RESP 17; O2SAT 99
[2023-08-11] MEDS: mupirocin 2% nasal ointment 1gm UD NS SCH (20:39)
[2023-08-11 22:00] VITALS: BP 134/73; PULSE 92; RESP 18; TEMP 97.5; O2SAT 96
[2023-08-12] VITALS (8 sets, daily range): BP systolic 136–175; BP diastolic 70–84; PULSE 85–103; RESP 17–20; TEMP 97.5–97.9; O2SAT 95–99
[2023-08-12] MEDS: VANCOMYCIN LEVEL IV ONE (05:01)
[2023-08-12 06:58] LABS: BASOPHILS # (AUTO) 0.2 X10'3 (0-0.2); BASOPHILS % (AUTO) 1.5 % (0-1); EOSINOPHILS # (AUTO) 0.4 X10'3 (0-0.9); EOSINOPHILS % (AUTO) 3.2 % (0-6); HEMATOCRIT 25.1 % (42.0-52.0); HEMOGLOBIN 8.1 g/dl (14.0-17.9); LYMPHOCYTES # (AUTO) 2.6 X10'3 (1.1-4.8); LYMPHOCYTES % (AUTO) 22.4 % (21-51); MEAN CORPUSCULAR HEMOGLOBIN 26.4 PG (27.0-31.0); MEAN CORPUSCULAR VOLUME 82.4 FL (78-98); MEAN PLATELET VOLUME 7.9 FL (7.4-10.4); MONOCYTES # (AUTO) 1.1 X10'3 (0-0.9); NEUTROPHILS # (AUTO) 7.5 X10'3 (1.8-7.7); NEUTROPHILS % (AUTO) 63.9 % (42-75); PLATELET COUNT 509 X10'3 (140-440); RED BLOOD COUNT 3.05 X10'6 (4.70-6.10); RED CELL DISTRIBUTION WIDTH 17.5 % (11.5-14.5); WHITE BLOOD COUNT 11.7 X10'3 (4.5-11.0)
[2023-08-12 07:03] LABS: ALANINE AMINOTRANSFERASE 132 U/L (12-78); ALBUMIN 2.3 G/DL (3.4-5.0); ALBUMIN/GLOBULIN RATIO 0.4 (1.1-1.5); ALKALINE PHOSPHATASE 515 IU/L (46-116); ANION GAP 8 (8-16); ASPARTATE AMINO TRANSFERASE 131 U/L (10-37); BILIRUBIN,TOTAL 0.4 MG/DL (0.1-1.0); BLOOD UREA NITROGEN 40 MG/DL (7-18); BUN/CREATININE RATIO 34.5 (10.0-20.0); CALCIUM 7.2 MG/DL (8.5-10.1); CHLORIDE 110 MMOL/L (99-107); CREATININE 1.16 MG/DL (0.60-1.10); GLUCOSE 161 MG/DL (70-104); MAGNESIUM 2.3 MG/DL (1.5-2.4); POTASSIUM 4.2 MMOL/L (3.5-5.1); SODIUM 139 MMOL/L (135-145); TOTAL CARBON DIOXIDE 21.1 MMOL/L (24-32); TOTAL PROTEIN 7.7 G/DL (6.4-8.2); eCRCL 59 ML/MIN; eGFR 63 ML/MIN
[2023-08-12 07:06] LABS: VANCOMYCIN,TROUGH 31.2 ug/mL (10.0-20.0)
[2023-08-12] MEDS: furosemide 20 MG/2 ML vial IV ONE ×2 (07:53→19:52)
[2023-08-12 09:21] LABS: PRO BRAIN NATRIURETIC PEPTIDE 7830 PG/ML (0-125)
[2023-08-12 10:12] LABS: INR 2.2 INR; PROTHROMBIN TIME 22.3 SECONDS (9.0-12.0)
[2023-08-12] MEDS ORDERED: ipratropium/albuterol 3ml nebule NEB PRN (10:40)
[2023-08-12 12:25] LABS: ABG BASE EXCESS -7.2 mmol/L (-2.0-2.0); ABG HCO3 19.7 mmol/L (22.0-26.0); ABG OXYGEN SATURATION 92.7 % (94-97); ABG PCO2 (T) 45.1 mmHg (35.0-48.0); ABG PH (T) 7.255 (7.340-7.440); ABG PO2 (T) 68.4 mmHg (75.0-100.0); ALLEN'S TEST POSITIVE; FCOHb 0.3 % (0.0-3.9); FHHb 7.3 % (0.0-5.0); FLOW 2 L/min; FMetHb 0.3 % (0.0-1.5); FO2Hb 92.1 % (94-97); MODE NASAL CANNULA; PATIENT TEMPERATURE 36.4; TOTAL HEMOGLOBIN 9.4 G/dl (14.0-17.9)
[2023-08-12] MEDS: furosemide 20 MG/2 ML vial IV SCH (17:05)
[2023-08-12] MEDS: gabapentin 300mg capsule PO SCH (20:38)
[2023-08-12] MEDS: warfarin 5mg tablet PO ONE (20:38)
[2023-08-13] VITALS (14 sets, daily range): BP systolic 124–182; BP diastolic 72–97; PULSE 90–114; RESP 15–23; TEMP 97.6–98.6; O2SAT 90–98
[2023-08-13] MEDS: VANCOMYCIN 750MG IV in NS 250 ML IV SCH (05:08)
[2023-08-13 07:01] LABS: BASOPHILS # (AUTO) 0.2 X10'3 (0-0.2); BASOPHILS % (AUTO) 1.4 % (0-1); EOSINOPHILS # (AUTO) 0.2 X10'3 (0-0.9); EOSINOPHILS % (AUTO) 1.7 % (0-6); HEMATOCRIT 26.2 % (42.0-52.0); HEMOGLOBIN 8.3 g/dl (14.0-17.9); LYMPHOCYTES # (AUTO) 2.4 X10'3 (1.1-4.8); LYMPHOCYTES % (AUTO) 18.1 % (21-51); MEAN CORPUSCULAR HEMOGLOBIN 26.3 PG (27.0-31.0); MEAN CORPUSCULAR HGB CONC 31.8 g/dL (33.0-36.5); MEAN CORPUSCULAR VOLUME 82.7 FL (78-98); MEAN PLATELET VOLUME 7.5 FL (7.4-10.4); MONOCYTES # (AUTO) 1.1 X10'3 (0-0.9); MONOCYTES % (AUTO) 8.1 % (2-12); NEUTROPHILS # (AUTO) 9.5 X10'3 (1.8-7.7); NEUTROPHILS % (AUTO) 70.7 % (42-75); PLATELET COUNT 489 X10'3 (140-440); RED BLOOD COUNT 3.17 X10'6 (4.70-6.10); RED CELL DISTRIBUTION WIDTH 17.7 % (11.5-14.5); WHITE BLOOD COUNT 13.5 X10'3 (4.5-11.0)
[2023-08-13 07:09] LABS: INR 1.7 INR; PROTHROMBIN TIME 17.8 SECONDS (9.0-12.0)
[2023-08-13 07:18] LABS: ALANINE AMINOTRANSFERASE 89 U/L (12-78); ALBUMIN 2.4 G/DL (3.4-5.0); ALBUMIN/GLOBULIN RATIO 0.4 (1.1-1.5); ALKALINE PHOSPHATASE 434 IU/L (46-116); ANION GAP 9 (8-16); ASPARTATE AMINO TRANSFERASE 53 U/L (10-37); BILIRUBIN,TOTAL 0.5 MG/DL (0.1-1.0); BLOOD UREA NITROGEN 34 MG/DL (7-18); BUN/CREATININE RATIO 29.6 (10.0-20.0); CALCIUM 7.7 MG/DL (8.5-10.1); CHLORIDE 112 MMOL/L (99-107); CREATININE 1.15 MG/DL (0.60-1.10); GLUCOSE 110 MG/DL (70-104); MAGNESIUM 2.2 MG/DL (1.5-2.4); POTASSIUM 4.2 MMOL/L (3.5-5.1); SODIUM 142 MMOL/L (135-145); TOTAL CARBON DIOXIDE 21.4 MMOL/L (24-32); eCRCL 60 ML/MIN; eGFR 64 ML/MIN
[2023-08-13] MEDS ORDERED: furosemide 10 MG/1 ML 10ml inj IV SCH (08:00)
[2023-08-13] MEDS: metoprolol succinate 25mg (24-HOUR) SR. Tablet PO SCH (08:16)
[2023-08-13] MEDS: furosemide 10 MG/1 ML 10ml inj IV SCH (08:16)
[2023-08-13 11:58] LABS: PRO BRAIN NATRIURETIC PEPTIDE 17505 PG/ML (0-125)
[2023-08-13 15:07] LABS: BFSOURCE LEFT PLEURAL FLD
[2023-08-13] MEDS: carvedilol 6.25mg tablet PO ONE (15:11)
[2023-08-13 15:22] LABS: GLUCOSE,BODY FLUID 205 MG/DL; LDH,BODY FLUID 68 U/L
[2023-08-13] MEDS: ipratropium/albuterol 3ml nebule NEB SCH (15:37)
[2023-08-13 15:39] LABS: TOTAL PROTEIN,BODY FLUID < 2.0 G/DL
[2023-08-13 16:40] LABS: BFAPPEAR HAZY; BFSOURCE LEFT PLEURAL FLD
[2023-08-13 16:41] LABS: BF RBC COUNT 28750 /CU MM; BF WBC COUNT 244 /CU MM (0-1000); BFCOLOR RED; BFVOLUME 26 ML; LYMPHOCYTES,BODY FLUID 65 %; MONOCYTES,BODY FLUID 4 %; NEUTROPHILS,BODY FLUID 32 %
[2023-08-13 16:42] LABS: BF MESOTHELIAL CELLS FEW
[2023-08-13] MEDS: carvedilol 6.25mg tablet PO SCH (19:48)
[2023-08-13] MEDS: warfarin 4mg tablet PO ONE (21:24)
[2023-08-13] MEDS: warfarin 1mg tablet PO ONE (21:25)
[2023-08-14] VITALS (14 sets, daily range): BP systolic 124–160; BP diastolic 65–79; PULSE 74–94; RESP 16–20; TEMP 97.8–98; O2SAT 91–100
[2023-08-14 08:40] LABS: BASOPHILS # (AUTO) 0.1 X10'3 (0-0.2); EOSINOPHILS # (AUTO) 0.1 X10'3 (0-0.9); EOSINOPHILS % (AUTO) 1.2 % (0-6); HEMATOCRIT 24.1 % (42.0-52.0); HEMOGLOBIN 7.7 g/dl (14.0-17.9); MEAN CORPUSCULAR HEMOGLOBIN 26.5 PG (27.0-31.0); WHITE BLOOD COUNT 11.1 X10'3 (4.5-11.0)
[2023-08-14 08:44] LABS: BASOPHILS % (AUTO) 0.9 % (0-1); LYMPHOCYTES % (AUTO) 17.8 % (21-51); MEAN CORPUSCULAR HGB CONC 32.1 g/dL (33.0-36.5); MEAN CORPUSCULAR VOLUME 82.7 FL (78-98); MEAN PLATELET VOLUME 7.6 FL (7.4-10.4); MONOCYTES # (AUTO) 0.9 X10'3 (0-0.9); MONOCYTES % (AUTO) 7.8 % (2-12); NEUTROPHILS % (AUTO) 72.3 % (42-75); PLATELET COUNT 506 X10'3 (140-440); RED BLOOD COUNT 2.92 X10'6 (4.70-6.10); RED CELL DISTRIBUTION WIDTH 18.1 % (11.5-14.5)
[2023-08-14 08:52] LABS: INR 2.3 INR
[2023-08-14] MEDS: HYDROcodone/acetaminophen 5mg/325mg tablet PO PRN (09:48)
[2023-08-14 11:13] LABS: ALANINE AMINOTRANSFERASE 68 U/L (12-78); ALBUMIN 2.2 G/DL (3.4-5.0); ALBUMIN/GLOBULIN RATIO 0.4 (1.1-1.5); ALKALINE PHOSPHATASE 343 IU/L (46-116); ANION GAP 9 (8-16); ASPARTATE AMINO TRANSFERASE 34 U/L (10-37); BILIRUBIN,TOTAL 0.5 MG/DL (0.1-1.0); BLOOD UREA NITROGEN 41 MG/DL (7-18); BUN/CREATININE RATIO 27.2 (10.0-20.0); CHLORIDE 113 MMOL/L (99-107); CREATININE 1.51 MG/DL (0.60-1.10); GLUCOSE 206 MG/DL (70-104); LACTATE DEHYDROGENASE 217 U/L (85-227); MAGNESIUM 2.2 MG/DL (1.5-2.4); POTASSIUM 4.4 MMOL/L (3.5-5.1); PRO BRAIN NATRIURETIC PEPTIDE 17618 PG/ML (0-125); SODIUM 145 MMOL/L (135-145); TOTAL CARBON DIOXIDE 23.5 MMOL/L (24-32); TOTAL PROTEIN 7.4 G/DL (6.4-8.2); eCRCL 46 ML/MIN; eGFR 47 ML/MIN
[2023-08-14] MEDS: lactose-reduced food (Ensure Enlive) - 237ml bottle PO SCH (12:55)
[2023-08-14] MEDS: warfarin 3mg tablet PO ONE (20:29)
[2023-08-15] VITALS (10 sets, daily range): BP systolic 125–159; BP diastolic 70–77; PULSE 70–83; RESP 14–18; TEMP 97.4–98.2; O2SAT 92–100
[2023-08-15] MEDS: VANCOMYCIN LEVEL IJ ONE (04:56)
[2023-08-15 05:18] LABS: INR 2.4 INR; PROTHROMBIN TIME 24.5 SECONDS (9.0-12.0)
[2023-08-15 05:19] LABS: BASOPHILS # (AUTO) 0.1 X10'3 (0-0.2); BASOPHILS % (AUTO) 1.3 % (0-1); EOSINOPHILS # (AUTO) 0.3 X10'3 (0-0.9); EOSINOPHILS % (AUTO) 2.4 % (0-6); HEMATOCRIT 24.2 % (42.0-52.0); HEMOGLOBIN 7.7 g/dl (14.0-17.9); LYMPHOCYTES # (AUTO) 2.1 X10'3 (1.1-4.8); MEAN CORPUSCULAR HEMOGLOBIN 26.4 PG (27.0-31.0); MEAN CORPUSCULAR HGB CONC 31.9 g/dL (33.0-36.5); MEAN CORPUSCULAR VOLUME 82.8 FL (78-98); MEAN PLATELET VOLUME 7.6 FL (7.4-10.4); MONOCYTES # (AUTO) 0.8 X10'3 (0-0.9); MONOCYTES % (AUTO) 6.9 % (2-12); NEUTROPHILS # (AUTO) 7.7 X10'3 (1.8-7.7); NEUTROPHILS % (AUTO) 70.4 % (42-75); PLATELET COUNT 485 X10'3 (140-440); RED BLOOD COUNT 2.93 X10'6 (4.70-6.10)
[2023-08-15 05:27] LABS: ALANINE AMINOTRANSFERASE 54 U/L (12-78); ALBUMIN 2.2 G/DL (3.4-5.0); ALBUMIN/GLOBULIN RATIO 0.4 (1.1-1.5); ALKALINE PHOSPHATASE 322 IU/L (46-116); ANION GAP 5 (8-16); ASPARTATE AMINO TRANSFERASE 27 U/L (10-37); BILIRUBIN,TOTAL 0.4 MG/DL (0.1-1.0); BLOOD UREA NITROGEN 43 MG/DL (7-18); BUN/CREATININE RATIO 30.7 (10.0-20.0); CALCIUM 7.9 MG/DL (8.5-10.1); CHLORIDE 111 MMOL/L (99-107); GLUCOSE 163 MG/DL (70-104); MAGNESIUM 2.2 MG/DL (1.5-2.4); POTASSIUM 4.4 MMOL/L (3.5-5.1); SODIUM 144 MMOL/L (135-145); TOTAL CARBON DIOXIDE 28.3 MMOL/L (24-32); TOTAL PROTEIN 7.3 G/DL (6.4-8.2); eCRCL 49 ML/MIN; eGFR 51 ML/MIN
[2023-08-15 07:09] LABS: VANCOMYCIN,TROUGH 28.4 ug/mL (10.0-20.0)
[2023-08-15] MEDS: lisinopril 5mg tablet PO SCH (09:29)
[2023-08-15] MEDS ORDERED: gabapentin 300mg capsule PO SCH (13:59)
[2023-08-15] MEDS ORDERED: warfarin 3mg tablet PO ONE (21:00)
[2023-08-17] MEDS ORDERED: VANCOMYCIN 750MG IV in NS 250 ML IV SCH (05:00)
[2023-08-21] MEDS ORDERED: VANCOMYCIN LEVEL IV ONE (04:30)
== END 2023-08-15 20:26 | DRG 720 ==
LOC: ER 12:35 → ED HOLD 17:00 → ORTHO 4S 08-09 23:22
PROVIDERS: ADMIT Family Medicine; ATTEND Family Medicine
PROC: 30233N1 Transfusion of Nonautologous Red Blood Cells into Peripheral Vein, Percutaneous Approach (ICD-10-PCS; 2023-08-10)
PROC: BW211ZZ Computerized Tomography (CT Scan) of Abdomen and Pelvis using Low Osmolar Contrast (ICD-10-PCS; principal; 2023-08-11)
PROC: 0W9B3ZZ Drainage of Left Pleural Cavity, Percutaneous Approach (ICD-10-PCS; 2023-08-13)
PROC: 0W993ZZ Drainage of Right Pleural Cavity, Percutaneous Approach (ICD-10-PCS; 2023-08-13)
DX: A41.02 Sepsis due to Methicillin resistant Staphylococcus aureus (principal); J96.01 Acute respiratory failure with hypoxia; K72.00 Acute and subacute hepatic failure without coma; N17.0 Acute kidney failure with tubular necrosis; I50.33 Acute on chronic diastolic (congestive) heart failure; J18.9 Pneumonia, unspecified organism; I13.0 Hypertensive heart and chronic kidney disease with heart failure and stage 1 through stage 4 chronic kidney disease, or unspecified chronic kidney disease; E87.20 Acidosis, unspecified; R18.8 Other ascites; E11.22 Type 2 diabetes mellitus with diabetic chronic kidney disease; D64.9 Anemia, unspecified; J91.8 Pleural effusion in other conditions classified elsewhere; I21.A1 Myocardial infarction type 2; N18.9 Chronic kidney disease, unspecified; J44.0 Chronic obstructive pulmonary disease with (acute) lower respiratory infection; E11.51 Type 2 diabetes mellitus with diabetic peripheral angiopathy without gangrene; F17.210 Nicotine dependence, cigarettes, uncomplicated; E11.42 Type 2 diabetes mellitus with diabetic polyneuropathy; I48.91 Unspecified atrial fibrillation; K76.0 Fatty (change of) liver, not elsewhere classified; Z20.822 Contact with and (suspected) exposure to COVID-19; G89.29 Other chronic pain; M86.8X7 Other osteomyelitis, ankle and foot; I25.10 Atherosclerotic heart disease of native coronary artery without angina pectoris; E11.69 Type 2 diabetes mellitus with other specified complication; Z90.49 Acquired absence of other specified parts of digestive tract; I25.2 Old myocardial infarction; Z83.3 Family history of diabetes mellitus; Z95.5 Presence of coronary angioplasty implant and graft; Z79.82 Long term (current) use of aspirin; Z79.899 Other long term (current) drug therapy
CPT/HCPCS: 32555; 36415; 36430; 36600; 70450; 71045; 74177; 76700; 80048; 80053; 80076; 80202; 80305; 81001; 82272; 82803; 82945; 82948; 83605; 83615; 83735; 83880; 83930; 83986; 84100; 84145; 84157; 84484; 85018; 85025; 85027; 85379; 85610; 86140; 86885; 86900; 86901; 86920; 87040; 87070; 87081; 87088; 87502; 87503; 87811; 89051; 93005; 93308; 94640; 94760; 97110; 97116; 97161; 97530; 99285; A4615; A4649; A6253; A6446; A6449; C1729; G0378; J0690; J0692; J1644; J1815; J1940; J2270; J2405; J3370; J3490; J7030; J7040; J7050; J7120; P9016; P9047; Q9967

== ENCOUNTER 2023-10-27 04:56 | Inpatient (IN) | payer MEDICAID ==
[~2023-10-27] VITALS: Ht 167.6 cm; Wt 86.1 kg
[~2023-10-27 04:56] MED LIST changes: +AMLO10TA; +AMLO10TA13 PO; -ASPI-1265 PO; -ATOR20TA PO; +CARV6.2553 PO; -CLOP75TA34 PO; -DOCU-171 PO; +DOCU100C40 PO; +FERR-39 PO; -INSU100V36 SQ; +INSU100V49 SQ; -KEN0.1O TOP; -LANTUS SQ; +LANTUS SUBCUT; -MULT-1085 PO; +SENN-263 PO
[2023-10-27 06:06] LABS: BASOPHILS # (AUTO) 0.1 X10'3 (0-0.2); BASOPHILS % (AUTO) 1.2 % (0-1); EOSINOPHILS # (AUTO) 0.9 X10'3 (0-0.9); EOSINOPHILS % (AUTO) 10.9 % (0-6); HEMATOCRIT 26.7 % (42.0-52.0); HEMOGLOBIN 8.7 g/dl (14.0-17.9); LYMPHOCYTES # (AUTO) 1.7 X10'3 (1.1-4.8); LYMPHOCYTES % (AUTO) 19.9 % (21-51); MEAN CORPUSCULAR HEMOGLOBIN 28.2 PG (27.0-31.0); MEAN CORPUSCULAR HGB CONC 32.5 g/dL (33.0-36.5); MEAN CORPUSCULAR VOLUME 86.7 FL (78-98); MEAN PLATELET VOLUME 7.5 FL (7.4-10.4); MONOCYTES # (AUTO) 0.6 X10'3 (0-0.9); MONOCYTES % (AUTO) 7.2 % (2-12); NEUTROPHILS # (AUTO) 5.3 X10'3 (1.8-7.7); NEUTROPHILS % (AUTO) 60.8 % (42-75); PLATELET COUNT 335 X10'3 (140-440); RED BLOOD COUNT 3.08 X10'6 (4.70-6.10); RED CELL DISTRIBUTION WIDTH 20.7 % (11.5-14.5); WHITE BLOOD COUNT 8.7 X10'3 (4.5-11.0)
[2023-10-27] MEDS ORDERED: CLON0.1T2 PO (06:06)
[2023-10-27] MEDS ORDERED: ASCO500C17 PO (06:08)
[2023-10-27] MEDS ORDERED: TEMA15CA5 PO (06:11)
[2023-10-27 06:28] LABS: LACTIC SEPSIS 0.6 MMOL/L (0.4-2.0)
[2023-10-27 06:36] LABS: ALBUMIN 2.9 G/DL (3.4-5.0); ANION GAP 4 (8-16); BLOOD UREA NITROGEN 63 MG/DL (7-18); BUN/CREATININE RATIO 42.3 (10.0-20.0); CALCIUM 7.9 MG/DL (8.5-10.1); CHLORIDE 107 MMOL/L (99-107); CREATININE 1.49 MG/DL (0.60-1.10); GLUCOSE 139 MG/DL (70-104); PRO BRAIN NATRIURETIC PEPTIDE 3050 PG/ML (0-125); SODIUM 142 MMOL/L (135-145); TOTAL CARBON DIOXIDE 31.3 MMOL/L (24-32); eCRCL 45 ML/MIN; eGFR 47 ML/MIN
[2023-10-27] MEDS: normal saline 1000ML IV soln IVB ONE (06:47)
[2023-10-27 08:46] LABS: BILIRUBIN,URINE NEGATIVE (Neg); CLARITY,URINE SLIGHTLY CLOUDY (Clear); COLOR,URINE YELLOW (Yellow); GLUCOSE, URINE NEGATIVE (Neg); KETONES,URINE NEGATIVE (Neg); LEUKOCYTE ESTERASE ,URINE TRACE (Neg); NITRITES, URINE NEGATIVE (Neg); OCCULT BLOOD,URINE SMALL (Neg); PH,URINE 5.5 (4.8-8.0); PROTEIN,URINE 100 mg/dl (Neg); UROBILINOGEN,URINE 0.2 E.U/dL (0.2-1.0)
[2023-10-27 08:52] LABS: UA COLLECTION TYPE VOIDED
[2023-10-27 08:55] LABS: RBC,URINE 50-100 /HPF (0-2); SQUAMOUS EPITHELIAL CELL,UR FEW /LPF (FEW)
[2023-10-27 08:56] LABS: WBC,URINE 30-50 /HPF (0-4)
[2023-10-27 08:57] LABS: YEAST FEW /HPF (NEGATIVE)
[2023-10-27 08:58] LABS: BACTERIA,URINE 1+ /HPF (Neg)
[2023-10-27 09:08] LABS: ANISOCYTOSIS 3+; ELLIPTOCYTES FEW; PLATELET ESTIMATE NORMAL; STOMATOCYTES FEW; TEAR DROP CELLS FEW
[2023-10-27] MEDS: vancomycin/NS 1 GM ADD-VANTAGE 250 ML X 1 DOSE IV ONE (11:37)
[2023-10-27] MEDS ORDERED: magnesium 2GM in 50ml NS 50 ML IV PRN (12:10)
[2023-10-27] MEDS ORDERED: potassium Cl 40MEQ/1/2NS 520ml 520 ML IV PRN (12:10)
[2023-10-27] MEDS ORDERED: potassium Cl 20 mEq SR tablet PO PRN ×2 (12:10)
[2023-10-27] MEDS ORDERED: magnesium Cl slow-release 64mg tablet PO PRN (12:10)
[2023-10-27] MEDS ORDERED: magnesium 4gm in 100ml NS 100 ML IV PRN (12:10)
[2023-10-27] MEDS ORDERED: acetaminophen 325mg tablet PO PRN (12:10)
[2023-10-27] MEDS ORDERED: magnesium hydroxide 30ml (MOM) UD suspension PO PRN (12:10)
[2023-10-27] MEDS ORDERED: ondansetron/PF 4mg/2ml inj IV PRN (12:10)
[2023-10-27] MEDS ORDERED: mag hydrox/Alum hydrox/simeth 30ml oral suspension PO PRN (12:10)
[2023-10-27 13:48] VITALS: BP 171/78; PULSE 82; RESP 18; TEMP 97.6; O2SAT 98
[2023-10-27] MEDS: amLODIPine 5mg tablet PO ONE (14:16)
[2023-10-27] MEDS: cefepime 2g/NS 100ml ADVANTAGE 100 ML IV ONE (14:19)
[2023-10-27] MEDS ORDERED: hydrALAZINE 20mg/ml inj. IV PRN (14:35)
[2023-10-27 15:00] VITALS: RESP 18; O2SAT 98
[2023-10-27] MEDS ORDERED: FURO-150 PO (15:12)
[2023-10-27 15:16] LABS: ALANINE AMINOTRANSFERASE 38 U/L (12-78); ALBUMIN 2.8 G/DL (3.4-5.0); ALBUMIN/GLOBULIN RATIO 0.6 (1.1-1.5); ALKALINE PHOSPHATASE 210 IU/L (46-116); ASPARTATE AMINO TRANSFERASE 25 U/L (10-37); BILIRUBIN,DIRECT 0.1 MG/DL (0-0.3); BILIRUBIN,TOTAL 0.4 MG/DL (0.1-1.0); TOTAL PROTEIN 7.7 G/DL (6.4-8.2)
[2023-10-27] MEDS: furosemide 40mg/4ml inj IV SCH (15:20)
[2023-10-27] MEDS: lactulose 20gm/30ml cup PO SCH (15:20)
[2023-10-27] MEDS: morphine 2 MG/ML inj. syringe IV PRN (15:27)
[2023-10-27] MEDS ORDERED: RIVA10TA PO (15:33)
[2023-10-27] MEDS ORDERED: VANC1VIA38 IV (15:33)
[2023-10-27] MEDS ORDERED: ASPI-611 PO (15:33)
[2023-10-27] MEDS ORDERED: METR-159 PO (15:33)
[2023-10-27] MEDS ORDERED: CIPR750T14 PO (15:33)
[2023-10-27] MEDS ORDERED: rivaroxaban 10mg tablet PO SCH (16:20)
[2023-10-27] MEDS ORDERED: glucagon, human recombinant 1mg kit SUBCUT PRN (16:50)
[2023-10-27] MEDS ORDERED: DEXTROSE 15 GM of carb/4 tabs (each vial/BOTTLE has 4 tablets) PO PRN ×2 (16:50)
[2023-10-27] MEDS ORDERED: dextrose 50%-water 50ml dispensing syringe IV PRN ×2 (16:50)
[2023-10-27] MEDS ORDERED: INSULIN LISPRO 100 UNIT/ML INSULN.PEN MULTI-DOSE SQ SCH (17:00)
[2023-10-27] MEDS ORDERED: insulin Lispro (HumaLOG) vial - multi-dose SQ SCH (17:18)
[2023-10-27] MEDS: K and/or MAG REPLACEMENT MC SCH (19:45)
[2023-10-27] MEDS: carvedilol 6.25mg tablet PO SCH (19:46)
[2023-10-27] MEDS: carBAMazepine Ext. Release 200 MG TAB.ER.12H PO SCH (19:57)
[2023-10-27] MEDS: docusate sod 100mg capsule PO SCH ×2 (19:57→20:08)
[2023-10-27] MEDS: sennosides 8.6mg tablet PO SCH (19:57)
[2023-10-27] MEDS: rivaroxaban 10mg tablet PO SCH (19:58)
[2023-10-27] MEDS: ciprofloxacin 250mg tablet PO SCH (19:58)
[2023-10-27 20:00] VITALS: RESP 18; O2SAT 98
[2023-10-27] MEDS ORDERED: VANCOMYCIN 1,500MG inj. 1,500 MG in normal saline 500ml IV soln 300 ML IV SCH (20:00)
[2023-10-27] MEDS ORDERED: heparin, porcine 5000 units/ml vial SQ SCH (20:00)
[2023-10-27] MEDS: metroNIDAZOLE 500mg tablet PO SCH (20:01)
[2023-10-27] MEDS: insulin glargine (Lantus) pen - multi-dose SQ SCH (20:34)
[2023-10-27] MEDS: INSULIN LISPRO 100 UNIT/ML INSULN.PEN MULTI-DOSE SQ SCH (21:00)
[2023-10-27 22:00] VITALS: BP 137/68; PULSE 77; RESP 16; TEMP 97.8; O2SAT 97
[2023-10-28 06:00] VITALS: BP 147/61; PULSE 70; RESP 18; TEMP 97.6; O2SAT 95
[2023-10-28 08:17] LABS: BASOPHILS # (AUTO) 0.1 X10'3 (0-0.2); BASOPHILS % (AUTO) 1.1 % (0-1); EOSINOPHILS # (AUTO) 0.5 X10'3 (0-0.9); EOSINOPHILS % (AUTO) 6.4 % (0-6); HEMATOCRIT 26.9 % (42.0-52.0); HEMOGLOBIN 8.6 g/dl (14.0-17.9); LYMPHOCYTES # (AUTO) 1.6 X10'3 (1.1-4.8); LYMPHOCYTES % (AUTO) 19.2 % (21-51); MEAN CORPUSCULAR VOLUME 87.6 FL (78-98); MEAN PLATELET VOLUME 7.9 FL (7.4-10.4); MONOCYTES # (AUTO) 0.4 X10'3 (0-0.9); MONOCYTES % (AUTO) 5.4 % (2-12); NEUTROPHILS # (AUTO) 5.6 X10'3 (1.8-7.7); NEUTROPHILS % (AUTO) 67.9 % (42-75); PLATELET COUNT 341 X10'3 (140-440); RED BLOOD COUNT 3.07 X10'6 (4.70-6.10); WHITE BLOOD COUNT 8.2 X10'3 (4.5-11.0)
[2023-10-28 08:32] LABS: INR 1.1 INR; PROTHROMBIN TIME 11.9 SECONDS (9.0-12.0)
[2023-10-28 08:47] LABS: ALANINE AMINOTRANSFERASE 38 U/L (12-78); ALBUMIN 2.9 G/DL (3.4-5.0); ALBUMIN/GLOBULIN RATIO 0.6 (1.1-1.5); ALKALINE PHOSPHATASE 205 IU/L (46-116); ANION GAP 3 (8-16); ASPARTATE AMINO TRANSFERASE 28 U/L (10-37); BILIRUBIN,TOTAL 0.4 MG/DL (0.1-1.0); BLOOD UREA NITROGEN 55 MG/DL (7-18); BUN/CREATININE RATIO 43.7 (10.0-20.0); CALCIUM 7.9 MG/DL (8.5-10.1); CHLORIDE 110 MMOL/L (99-107); CREATININE 1.26 MG/DL (0.60-1.10); GLUCOSE 114 MG/DL (70-104); MAGNESIUM 2.5 MG/DL (1.5-2.4); POTASSIUM 4.8 MMOL/L (3.5-5.1); SODIUM 144 MMOL/L (135-145); TOTAL CARBON DIOXIDE 30.9 MMOL/L (24-32); TOTAL PROTEIN 7.6 G/DL (6.4-8.2); eCRCL 53 ML/MIN; eGFR 57 ML/MIN
[2023-10-28] MEDS: ferrous sulfate 325mg tablet PO SCH (09:32)
[2023-10-28] MEDS: aspirin 81mg, enteric-coated 1 TAB TABLET.DR PO SCH (09:32)
[2023-10-28] MEDS: amLODIPine 5mg tablet PO SCH (09:33)
[2023-10-28] MEDS: HYDROcodone/acetaminophen 10/325mg tab PO PRN (09:53)
[2023-10-28 10:00] VITALS: BP 170/73; PULSE 67; RESP 16; TEMP 97.5; O2SAT 95
[2023-10-28] MEDS: VANCOMYCIN LEVEL IV ONE (11:30)
[2023-10-28] MEDS: vancomycin inj 500 MG in normal saline 100ml IV soln 100 ML IV SCH (13:09)
[2023-10-28] MEDS ORDERED: ciprofloxacin 250mg tablet PO SCH (20:00)
== END 2023-10-28 16:38 | DRG 199 ==
LOC: ER 04:57 → ED HOLD 12:19 → ORTHO 4S 13:39
PROVIDERS: ADMIT Family Medicine; ATTEND Family Medicine
DX: I16.0 Hypertensive urgency (principal); G93.40 Encephalopathy, unspecified; I50.33 Acute on chronic diastolic (congestive) heart failure; E11.22 Type 2 diabetes mellitus with diabetic chronic kidney disease; M86.8X8 Other osteomyelitis, other site; E86.0 Dehydration; I48.91 Unspecified atrial fibrillation; E11.42 Type 2 diabetes mellitus with diabetic polyneuropathy; N39.0 Urinary tract infection, site not specified; Z20.822 Contact with and (suspected) exposure to COVID-19; E11.51 Type 2 diabetes mellitus with diabetic peripheral angiopathy without gangrene; G89.29 Other chronic pain; I25.10 Atherosclerotic heart disease of native coronary artery without angina pectoris; N18.4 Chronic kidney disease, stage 4 (severe); Z87.891 Personal history of nicotine dependence; E11.69 Type 2 diabetes mellitus with other specified complication; I13.0 Hypertensive heart and chronic kidney disease with heart failure and stage 1 through stage 4 chronic kidney disease, or unspecified chronic kidney disease
CPT/HCPCS: 36415; 71046; 80048; 80053; 80076; 81001; 82140; 82948; 83605; 83735; 83880; 84145; 84484; 85008; 85025; 85610; 87040; 87081; 87088; 93005; 99285; A4349; A4358; A6212; A6213; A6223; A6253; A6446; A6449; A6590; C1758; G0378; J0692; J1815; J1940; J2270; J3370; J3490; J7030

== ENCOUNTER 2023-11-19 15:43 | Inpatient (IN) | payer MEDICAID ==
[~2023-11-19] VITALS: Ht 167.6 cm; Wt 87.0 kg
[~2023-11-19 15:43] MED LIST changes: +ASCO500C17 PO; +ASPI-611 PO; +CIPR750T14 PO; +CLON0.1T2 PO; +FURO-150 PO; +METR-159 PO; +RIVA10TA PO; +TEMA15CA5 PO; +VANC1VIA38 IV
[2023-11-19 16:50] LABS: ALANINE AMINOTRANSFERASE 35 U/L (12-78); ALBUMIN 1.9 G/DL (3.4-5.0); ALBUMIN/GLOBULIN RATIO 0.4 (1.1-1.5); ALKALINE PHOSPHATASE 303 IU/L (46-116); ANION GAP 8 (8-16); ASPARTATE AMINO TRANSFERASE 49 U/L (10-37); BASOPHILS # (AUTO) 0.1 X10'3 (0-0.2); BASOPHILS % (AUTO) 0.7 % (0-1); BILIRUBIN,TOTAL 0.3 MG/DL (0.1-1.0); BLOOD UREA NITROGEN 126 MG/DL (7-18); BUN/CREATININE RATIO 39.7 (10.0-20.0); CALCIUM 8.7 MG/DL (8.5-10.1); CHLORIDE 97 MMOL/L (99-107); CREATININE 3.17 MG/DL (0.60-1.10); EOSINOPHILS # (AUTO) 0.2 X10'3 (0-0.9); EOSINOPHILS % (AUTO) 2.1 % (0-6); GLUCOSE 115 MG/DL (70-104); HEMATOCRIT 22.1 % (42.0-52.0); HEMOGLOBIN 7.1 g/dl (14.0-17.9); LYMPHOCYTES # (AUTO) 1.6 X10'3 (1.1-4.8); LYMPHOCYTES % (AUTO) 14.6 % (21-51); MEAN CORPUSCULAR HEMOGLOBIN 27.1 PG (27.0-31.0); MEAN CORPUSCULAR VOLUME 84.9 FL (78-98); MEAN PLATELET VOLUME 7.4 FL (7.4-10.4); MONOCYTES # (AUTO) 1.1 X10'3 (0-0.9); MONOCYTES % (AUTO) 10.3 % (2-12); NEUTROPHILS # (AUTO) 7.9 X10'3 (1.8-7.7); NEUTROPHILS % (AUTO) 72.3 % (42-75); PLATELET COUNT 532 X10'3 (140-440); POTASSIUM 5.2 MMOL/L (3.5-5.1); RED CELL DISTRIBUTION WIDTH 19.7 % (11.5-14.5); SODIUM 131 MMOL/L (135-145); TOTAL CARBON DIOXIDE 25.7 MMOL/L (24-32); WHITE BLOOD COUNT 10.9 X10'3 (4.5-11.0); eCRCL 21 ML/MIN; eGFR 20 ML/MIN
[2023-11-19 16:53] LABS: BILIRUBIN,URINE NEGATIVE (Neg); CLARITY,URINE CLOUDY (Clear); COLOR,URINE YELLOW (Yellow); GLUCOSE, URINE NEGATIVE (Neg); KETONES,URINE NEGATIVE (Neg); LEUKOCYTE ESTERASE ,URINE MODERATE (Neg); NITRITES, URINE NEGATIVE (Neg); OCCULT BLOOD,URINE LARGE (Neg); PROTEIN,URINE 100 mg/dl (Neg); UROBILINOGEN,URINE 0.2 E.U/dL (0.2-1.0)
[2023-11-19 17:05] LABS: ABG BASE EXCESS -4.1 mmol/L (-2.0-2.0); ABG HCO3 22.8 mmol/L (22.0-26.0); ABG OXYGEN SATURATION 92.6 % (94-97); ABG PCO2 (T) 50.6 mmHg (35.0-48.0); ABG PO2 (T) 70.1 mmHg (75.0-100.0); FCOHb 0.3 % (0.0-3.9); FHHb 7.3 % (0.0-5.0); FLOW 10 L/min; FMetHb 0.4 % (0.0-1.5); MODE MASK - NRB; PATIENT TEMPERATURE 36.6; TOTAL HEMOGLOBIN 8.1 G/dl (14.0-17.9)
[2023-11-19 17:14] LABS: UA COLLECTION TYPE VOIDED
[2023-11-19 17:24] LABS: HYALINE CASTS 0-3 /LPF (NEGATIVE); RBC,URINE TNTC /HPF (0-2); SQUAMOUS EPITHELIAL CELL,UR NONE SEEN /LPF (FEW); WBC,URINE 50-100 /HPF (0-4)
[2023-11-19 17:25] LABS: BACTERIA,URINE FEW /HPF (Neg); YEAST MODERATE /HPF (NEGATIVE)
[2023-11-19] MEDS ORDERED: vancomycin/NS ADD-VANTAGE 1,000 MG/250 ML BAG IV STA (17:37)
[2023-11-19 17:56] LABS: PLATELET ESTIMATE INCREASED
[2023-11-19 17:57] LABS: ANISOCYTOSIS 2+; POLYCHROMASIA 1+
[2023-11-19 17:58] LABS: HYPOCHROMASIA 1+
[2023-11-19] MEDS: piperacillin/tazo 4.5gm/100ml 100 ML IV STA (17:58)
[2023-11-19] MEDS: ringers solution, lacted 1,000 ML IV ONE (18:02)
[2023-11-19] MEDS ORDERED: vancomycin/NS 1 GM ADD-VANTAGE 250 ML IV ONE (19:10)
[2023-11-19 19:51] VITALS: PULSE 74; RESP 22; O2SAT 95
[2023-11-19] MEDS: vancomycin 1,750 MG in NS 350ml IV soln IV ONE (20:25)
[2023-11-19] MEDS: acetaminophen 1,000mg/100ml IV 100 ML IV ONE (20:50)
[2023-11-19 20:58] LABS: LIPASE 9 U/L (16-77)
[2023-11-19] MEDS ORDERED: mag hydrox/Alum hydrox/simeth 30ml oral suspension PO PRN (21:15)
[2023-11-19] MEDS ORDERED: magnesium 4gm in 100ml NS 100 ML IV PRN (21:15)
[2023-11-19] MEDS ORDERED: ondansetron/PF 4mg/2ml inj IV PRN (21:15)
[2023-11-19] MEDS ORDERED: potassium Cl 40MEQ/1/2NS 520ml 520 ML IV PRN (21:15)
[2023-11-19] MEDS ORDERED: magnesium 2GM in 50ml NS 50 ML IV PRN (21:15)
[2023-11-19] MEDS ORDERED: potassium Cl 20 mEq SR tablet PO PRN ×2 (21:15)
[2023-11-19] MEDS ORDERED: magnesium Cl slow-release 64mg tablet PO PRN (21:15)
[2023-11-19 22:30] LABS: PRO BRAIN NATRIURETIC PEPTIDE 5485 PG/ML (0-125)
[2023-11-19 22:53] VITALS: BP 97/53; PULSE 71; RESP 20; TEMP 98.3; O2SAT 95
[2023-11-19 23:07] LABS: VANCOMYCIN,RANDOM 30.7 ug/mL (20.0-30.0)
[2023-11-19] MEDS: ipratropium/albuterol 3ml nebule NEB SCH (23:29)
[2023-11-19 23:35] VITALS: PULSE 73; RESP 18; O2SAT 95
[2023-11-19 23:36] VITALS: PULSE 73; RESP 18; O2SAT 95
[2023-11-19 23:41] VITALS: PULSE 70; RESP 18
[2023-11-20] VITALS (22 sets, daily range): BP systolic 96–111; BP diastolic 40–48; PULSE 16–83; RESP 9–18; TEMP 97.2–98.4; O2SAT 90–97
[2023-11-20] MEDS: furosemide 10 MG/1 ML 10ml inj IV ONE (00:49)
[2023-11-20] MEDS: methylPREDNISolone sod succ 125mg/2ml vial IV ONE (00:55)
[2023-11-20] MEDS: piperacillin/tazo 3.375gm/50ml 50 ML IV SCH ×2 (01:06→22:56)
[2023-11-20] MEDS ORDERED: CIPR250T4 PO (01:55)
[2023-11-20] MEDS ORDERED: MULT-1085 PO (01:55)
[2023-11-20] MEDS ORDERED: ATOR20TA66 PO (01:55)
[2023-11-20] MEDS ORDERED: MELA3CAP2 PO (01:55)
[2023-11-20] MEDS ORDERED: ONDA4TAB12 PO (01:55)
[2023-11-20] MEDS ORDERED: RIVA10TA PO (01:55)
[2023-11-20] MEDS ORDERED: GABA300C PO (01:55)
[2023-11-20] MEDS ORDERED: VANC750F IV (01:57)
[2023-11-20] MEDS ORDERED: FLO0.4C PO (01:57)
[2023-11-20] MEDS ORDERED: OXYC-150 PO (01:59)
[2023-11-20] MEDS: K and/or MAG REPLACEMENT MC SCH (08:00)
[2023-11-20 08:05] LABS: BASOPHILS % (AUTO) 0.3 % (0-1); EOSINOPHILS % (AUTO) 0 % (0-6); HEMOGLOBIN 7.2 g/dl (14.0-17.9); LYMPHOCYTES # (AUTO) 0.5 X10'3 (1.1-4.8); MEAN CORPUSCULAR HEMOGLOBIN 28.3 PG (27.0-31.0); MEAN CORPUSCULAR HGB CONC 33.5 g/dL (33.0-36.5); MEAN CORPUSCULAR VOLUME 84.4 FL (78-98); MEAN PLATELET VOLUME 7.4 FL (7.4-10.4); MONOCYTES # (AUTO) 0.1 X10'3 (0-0.9); MONOCYTES % (AUTO) 1.1 % (2-12); NEUTROPHILS # (AUTO) 9.4 X10'3 (1.8-7.7); NEUTROPHILS % (AUTO) 93.6 % (42-75); PLATELET COUNT 557 X10'3 (140-440); RED BLOOD COUNT 2.54 X10'6 (4.70-6.10); RED CELL DISTRIBUTION WIDTH 19.8 % (11.5-14.5); WHITE BLOOD COUNT 10.1 X10'3 (4.5-11.0)
[2023-11-20 08:16] LABS: HEMATOCRIT 21.5 % (42.0-52.0)
[2023-11-20 08:27] LABS: ALBUMIN 1.9 G/DL (3.4-5.0); ANION GAP 7 (8-16); BLOOD UREA NITROGEN 132 MG/DL (7-18); BUN/CREATININE RATIO 37.9 (10.0-20.0); CALCIUM 8.5 MG/DL (8.5-10.1); CHLORIDE 98 MMOL/L (99-107); CREATININE 3.48 MG/DL (0.60-1.10); GLUCOSE 120 MG/DL (70-104); MAGNESIUM 2.9 MG/DL (1.5-2.4); PHOSPHORUS 7.2 MG/DL (2.3-4.5); POTASSIUM 5.5 MMOL/L (3.5-5.1); SODIUM 130 MMOL/L (135-145); TOTAL CARBON DIOXIDE 25.3 MMOL/L (24-32); eCRCL 19 ML/MIN; eGFR 18 ML/MIN
[2023-11-20 08:34] LABS: VANCOMYCIN,RANDOM 46.7 ug/mL (20.0-30.0)
[2023-11-20] MEDS: methylPREDNISolone sod succ/PF 40mg inj. IV SCH (10:13)
[2023-11-20] MEDS: furosemide 40mg/4ml inj IV SCH (10:13)
[2023-11-20] MEDS: docusate sod 100mg capsule PO SCH (10:14)
[2023-11-20] MEDS: vancomycin inj 500 MG in normal saline 100ml IV soln 100 ML IV SCH (20:53)
[2023-11-20] MEDS: LidoCAINE 2% Topical Jelly 11mL syringe (UROJET) MM ONE (23:40)
[2023-11-21] VITALS (26 sets, daily range): BP systolic 101–143; BP diastolic 37–69; PULSE 76–102; RESP 10–24; TEMP 96.6–99.3; O2SAT 95–100
[2023-11-21] MEDS ORDERED: glucagon, human recombinant 1mg kit SUBCUT PRN (00:55)
[2023-11-21] MEDS ORDERED: dextrose 50%-water 50ml dispensing syringe IV PRN ×2 (00:55)
[2023-11-21] MEDS ORDERED: DEXTROSE 15 GM of carb/4 tabs (each vial/BOTTLE has 4 tablets) PO PRN ×2 (00:55)
[2023-11-21 06:43] LABS: EOSINOPHILS % (AUTO) 0 % (0-6); MEAN CORPUSCULAR VOLUME 84.8 FL (78-98); MEAN PLATELET VOLUME 7.7 FL (7.4-10.4)
[2023-11-21 06:46] LABS: BASOPHILS % (AUTO) 0.3 % (0-1); LYMPHOCYTES # (AUTO) 1.1 X10'3 (1.1-4.8); LYMPHOCYTES % (AUTO) 9.1 % (21-51); MEAN CORPUSCULAR HEMOGLOBIN 27.4 PG (27.0-31.0); MEAN CORPUSCULAR HGB CONC 32.3 g/dL (33.0-36.5); MONOCYTES # (AUTO) 0.9 X10'3 (0-0.9); MONOCYTES % (AUTO) 7.3 % (2-12); NEUTROPHILS # (AUTO) 10.3 X10'3 (1.8-7.7); NEUTROPHILS % (AUTO) 83.3 % (42-75); PLATELET COUNT 628 X10'3 (140-440); RED BLOOD COUNT 2.45 X10'6 (4.70-6.10); RED CELL DISTRIBUTION WIDTH 19.9 % (11.5-14.5); WHITE BLOOD COUNT 12.3 X10'3 (4.5-11.0)
[2023-11-21 06:48] LABS: HEMATOCRIT 20.8 % (42.0-52.0); HEMOGLOBIN 6.7 g/dl (14.0-17.9)
[2023-11-21 06:56] LABS: ALBUMIN 1.8 G/DL (3.4-5.0); ANION GAP 13 (8-16); CALCIUM 8.4 MG/DL (8.5-10.1); CHLORIDE 95 MMOL/L (99-107); CREATININE 4.23 MG/DL (0.60-1.10); GLUCOSE 317 MG/DL (70-104); MAGNESIUM 3.3 MG/DL (1.5-2.4); PHOSPHORUS 8.9 MG/DL (2.3-4.5); POTASSIUM 5.7 MMOL/L (3.5-5.1); SODIUM 129 MMOL/L (135-145); TOTAL CARBON DIOXIDE 20.7 MMOL/L (24-32); eCRCL 16 ML/MIN; eGFR 14 ML/MIN
[2023-11-21] MEDS: INSULIN LISPRO 100 UNIT/ML INSULN.PEN MULTI-DOSE SQ SCH (07:00)
[2023-11-21 07:14] LABS: BLOOD UREA NITROGEN 142 MG/DL (7-18); BUN/CREATININE RATIO 33.6 (10.0-20.0)
[2023-11-21 07:40] LABS: PLATELET ESTIMATE INCREASED
[2023-11-21 07:41] LABS: ANISOCYTOSIS 2+; GIANT PLATELET FEW
[2023-11-21] MEDS: furosemide 10 MG/1 ML 10ml inj IV ONE (10:05)
[2023-11-21] MEDS: fentaNYL/PF 50MCG/1 ML 2ML syringe IV STA (11:49)
[2023-11-21] MEDS: midazolam 1 mg/ML 2ml injection ONE (11:50)
[2023-11-21] MEDS: midazolam 1 mg/ML 2ml injection IV STA (11:54)
[2023-11-21 14:25] LABS: HEMATOCRIT 24.7 % (42.0-52.0); MEAN PLATELET VOLUME 7.4 FL (7.4-10.4)
[2023-11-21 14:27] LABS: HEMOGLOBIN 8.2 g/dl (14.0-17.9); MEAN CORPUSCULAR HEMOGLOBIN 26.1 PG (27.0-31.0); MEAN CORPUSCULAR VOLUME 79.3 FL (78-98); PLATELET COUNT 644 X10'3 (140-440); RED BLOOD COUNT 3.12 X10'6 (4.70-6.10); RED CELL DISTRIBUTION WIDTH 24.9 % (11.5-14.5)
[2023-11-21] MEDS: heparin 1,000 units/ml 10ml inj IV ONE (16:23)
[2023-11-21] MEDS: heparin 1,000 units/ml 10ml inj HE ONE ×2 (16:24→16:27)
[2023-11-21] MEDS: heparin 1,000unit/ml 10ml vial 10 ML IV ONE (16:25)
[2023-11-21] MEDS: mannitol 12.5gm/50mL VIAL IV ONE (16:26)
[2023-11-21] MEDS: EPOETIN ALFA-EPBX 20,000 UNIT/ML 1 ML MDV IV ONE (16:27)
[2023-11-22] VITALS (25 sets, daily range): BP systolic 108–137; BP diastolic 53–85; PULSE 80–101; RESP 8–20; TEMP 97.8–98.4; O2SAT 89–98
[2023-11-22] MEDS ORDERED: vancomycin/NS 1 GM ADD-VANTAGE 250 ML IV PRN (00:55)
[2023-11-22] MEDS: diazepam inj 5 MG/ML inj. IV ONE (03:29)
[2023-11-22] MEDS ORDERED: albumin (human) 25% 100ml IV 100 ML IV PRN (06:50)
[2023-11-22 07:00] LABS: EOSINOPHILS % (AUTO) 0 % (0-6); HEMOGLOBIN 8.3 g/dl (14.0-17.9); MEAN CORPUSCULAR VOLUME 78.9 FL (78-98); WHITE BLOOD COUNT 12.6 X10'3 (4.5-11.0)
[2023-11-22 07:05] LABS: ALBUMIN 1.9 G/DL (3.4-5.0); ANION GAP 10 (8-16); BASOPHILS % (AUTO) 0.2 % (0-1); BLOOD UREA NITROGEN 116 MG/DL (7-18); CALCIUM 8.4 MG/DL (8.5-10.1); CHLORIDE 98 MMOL/L (99-107); CREATININE 3.52 MG/DL (0.60-1.10); GLUCOSE 321 MG/DL (70-104); HEMATOCRIT 25.9 % (42.0-52.0); LYMPHOCYTES # (AUTO) 1.6 X10'3 (1.1-4.8); LYMPHOCYTES % (AUTO) 12.6 % (21-51); MAGNESIUM 2.9 MG/DL (1.5-2.4); MEAN CORPUSCULAR HEMOGLOBIN 25.2 PG (27.0-31.0); MEAN CORPUSCULAR HGB CONC 31.9 g/dL (33.0-36.5); MEAN PLATELET VOLUME 7.2 FL (7.4-10.4); MONOCYTES # (AUTO) 1.2 X10'3 (0-0.9); MONOCYTES % (AUTO) 9.3 % (2-12); NEUTROPHILS # (AUTO) 9.8 X10'3 (1.8-7.7); NEUTROPHILS % (AUTO) 77.9 % (42-75); PHOSPHORUS 5.9 MG/DL (2.3-4.5); PLATELET COUNT 654 X10'3 (140-440); POTASSIUM 4.4 MMOL/L (3.5-5.1); RED BLOOD COUNT 3.28 X10'6 (4.70-6.10); RED CELL DISTRIBUTION WIDTH 24.7 % (11.5-14.5); SODIUM 132 MMOL/L (135-145); TOTAL CARBON DIOXIDE 23.8 MMOL/L (24-32); eCRCL 19 ML/MIN; eGFR 18 ML/MIN
[2023-11-22] MEDS: metroNIDAZOLE 500mg tablet PO SCH (08:00)
[2023-11-22] MEDS: CefTRIAXone 2gm/D5W 50ml BAG 50 ML IV SCH (08:39)
[2023-11-22 08:57] LABS: PLATELET ESTIMATE INCREASED
[2023-11-22 08:58] LABS: ANISOCYTOSIS 3+; HYPOCHROMASIA 1+; MICROCYTOSIS 1+; POIKILOCYTOSIS 1+; POLYCHROMASIA 1+; SCHISTOCYTES FEW
[2023-11-22] MEDS: mannitol 12.5gm/50mL VIAL IV ONE (11:46)
[2023-11-22] MEDS: EPOETIN ALFA-EPBX 20,000 UNIT/ML 1 ML MDV IV ONE (11:46)
[2023-11-22] MEDS: heparin 1,000unit/ml 10ml vial 10 ML IV ONE (11:51)
[2023-11-22] MEDS: heparin 1,000 units/ml 10ml inj IV ONE (11:51)
[2023-11-22] MEDS: heparin 1,000 units/ml 10ml inj HE ONE ×2 (11:53→11:54)
[2023-11-22] MEDS ORDERED: MESSAGE TO NURSING IV ONE (19:30)
[2023-11-23] VITALS (14 sets, daily range): BP systolic 127–146; BP diastolic 51–75; PULSE 92–107; RESP 12–16; TEMP 97.5–98.2; O2SAT 91–98
[2023-11-23 06:35] LABS: BASOPHILS % (AUTO) 0.2 % (0-1); EOSINOPHILS % (AUTO) 0.2 % (0-6); HEMATOCRIT 28.1 % (42.0-52.0); HEMOGLOBIN 9.2 g/dl (14.0-17.9); LYMPHOCYTES % (AUTO) 13.3 % (21-51); MEAN CORPUSCULAR HEMOGLOBIN 25.9 PG (27.0-31.0); MEAN CORPUSCULAR HGB CONC 32.6 g/dL (33.0-36.5); MEAN CORPUSCULAR VOLUME 79.3 FL (78-98); MEAN PLATELET VOLUME 7.4 FL (7.4-10.4); MONOCYTES # (AUTO) 1.5 X10'3 (0-0.9); MONOCYTES % (AUTO) 9.9 % (2-12); NEUTROPHILS # (AUTO) 11.3 X10'3 (1.8-7.7); NEUTROPHILS % (AUTO) 76.4 % (42-75); PLATELET COUNT 724 X10'3 (140-440); RED BLOOD COUNT 3.55 X10'6 (4.70-6.10); RED CELL DISTRIBUTION WIDTH 24.6 % (11.5-14.5); WHITE BLOOD COUNT 14.7 X10'3 (4.5-11.0)
[2023-11-23 06:57] LABS: ANION GAP 6 (8-16); BLOOD UREA NITROGEN 82 MG/DL (7-18); BUN/CREATININE RATIO 40.4 (10.0-20.0); CALCIUM 8.4 MG/DL (8.5-10.1); CHLORIDE 102 MMOL/L (99-107); CREATININE 2.03 MG/DL (0.60-1.10); FREE T4 (FREE THYROXINE) 1.18 NG/DL (0.73-1.40); GLUCOSE 314 MG/DL (70-104); MAGNESIUM 2.5 MG/DL (1.5-2.4); PHOSPHORUS 3.6 MG/DL (2.3-4.5); POTASSIUM 4.5 MMOL/L (3.5-5.1); SODIUM 136 MMOL/L (135-145); THYROID STIMULATING HORMONE 2.64 ulU/ml (0.34-4.50); TOTAL CARBON DIOXIDE 27.7 MMOL/L (24-32); VANCOMYCIN,RANDOM 25.5 ug/mL (20.0-30.0); eCRCL 33 ML/MIN; eGFR 33 ML/MIN
[2023-11-23] MEDS: morphine 2 MG/ML inj. syringe IV PRN (10:33)
[2023-11-23] MEDS: lactose-reduced food (Ensure Enlive) - 237ml bottle PO SCH (13:00)
[2023-11-23] MEDS: magnesium hydroxide 30ml (MOM) UD suspension PO PRN (14:44)
[2023-11-23 19:27] LABS: HBSAG SCREEN Negative (Negative)
[2023-11-23 20:58] LABS: OCCULT BLOOD STOOL NEGATIVE (Neg)
[2023-11-24] VITALS (19 sets, daily range): BP systolic 108–157; BP diastolic 51–79; PULSE 93–110; RESP 12–18; TEMP 97–98.5; O2SAT 90–100
[2023-11-24] MEDS: VANCOMYCIN LEVEL IV SCH (03:00)
[2023-11-24 06:05] LABS: MONOCYTES # (AUTO) 1.1 X10'3 (0-0.9)
[2023-11-24 06:12] LABS: BASOPHILS % (AUTO) 0.2 % (0-1); EOSINOPHILS % (AUTO) 0.3 % (0-6); HEMATOCRIT 30.7 % (42.0-52.0); HEMOGLOBIN 9.8 g/dl (14.0-17.9); LYMPHOCYTES # (AUTO) 1.7 X10'3 (1.1-4.8); LYMPHOCYTES % (AUTO) 11.1 % (21-51); MEAN CORPUSCULAR HEMOGLOBIN 25.3 PG (27.0-31.0); MEAN CORPUSCULAR VOLUME 79.3 FL (78-98); MEAN PLATELET VOLUME 7.5 FL (7.4-10.4); MONOCYTES % (AUTO) 7.2 % (2-12); NEUTROPHILS # (AUTO) 12.3 X10'3 (1.8-7.7); NEUTROPHILS % (AUTO) 81.2 % (42-75); PLATELET COUNT 735 X10'3 (140-440); RED BLOOD COUNT 3.88 X10'6 (4.70-6.10); RED CELL DISTRIBUTION WIDTH 24.9 % (11.5-14.5); WHITE BLOOD COUNT 15.1 X10'3 (4.5-11.0)
[2023-11-24 06:29] LABS: ANION GAP 3 (8-16); BLOOD UREA NITROGEN 71 MG/DL (7-18); BUN/CREATININE RATIO 52.6 (10.0-20.0); CALCIUM 8.4 MG/DL (8.5-10.1); CHLORIDE 105 MMOL/L (99-107); CREATININE 1.35 MG/DL (0.60-1.10); GLUCOSE 351 MG/DL (70-104); MAGNESIUM 2.8 MG/DL (1.5-2.4); PHOSPHORUS 2.2 MG/DL (2.3-4.5); POTASSIUM 4.7 MMOL/L (3.5-5.1); SODIUM 139 MMOL/L (135-145); TOTAL CARBON DIOXIDE 30.6 MMOL/L (24-32); VANCOMYCIN,RANDOM 18.4 ug/mL (20.0-30.0); eCRCL 49 ML/MIN; eGFR 53 ML/MIN
[2023-11-24 07:44] LABS: ANISOCYTOSIS 3+; HYPERSEGMENTED NEUTROPHILS FEW; PLATELET ESTIMATE INCREASED; TOTAL CELLS COUNTED 100
[2023-11-24 07:45] LABS: HYPOCHROMASIA 1+; MICROCYTOSIS 1+; POLYCHROMASIA 1+; ROULEAUX 1+
[2023-11-24 07:46] LABS: ELLIPTOCYTES FEW; SCHISTOCYTES FEW
[2023-11-24 12:26] LABS: COMPLEMENT C3, SERUM 80 mg/dL (82-167); COMPLEMENT C4, SERUM 21 mg/dL (12-38)
[2023-11-24] MEDS: HYDROcodone/acetaminophen 5mg/325mg tablet PO PRN (16:18)
[2023-11-24] MEDS: INSULIN LISPRO 100 UNIT/ML INSULN.PEN MULTI-DOSE SQ SCH (21:11)
[2023-11-25] VITALS (8 sets, daily range): BP systolic 100–125; BP diastolic 52–72; PULSE 3–109; RESP 16–19; TEMP 97.5–98.5; O2SAT 95–100
[2023-11-25] MEDS ORDERED: vancomycin/NS 1 GM ADD-VANTAGE 250 ML IV PRN (07:15)
[2023-11-25 07:47] LABS: HEMOGLOBIN 9.4 g/dl (14.0-17.9); MEAN PLATELET VOLUME 7.5 FL (7.4-10.4); MONOCYTES # (AUTO) 0.8 X10'3 (0-0.9)
[2023-11-25 07:48] LABS: BASOPHILS # (AUTO) 0.1 X10'3 (0-0.2); BASOPHILS % (AUTO) 0.5 % (0-1); EOSINOPHILS # (AUTO) 0.2 X10'3 (0-0.9); EOSINOPHILS % (AUTO) 1.4 % (0-6); HEMATOCRIT 30.2 % (42.0-52.0); LYMPHOCYTES % (AUTO) 6.7 % (21-51); MEAN CORPUSCULAR HEMOGLOBIN 25.4 PG (27.0-31.0); MEAN CORPUSCULAR HGB CONC 31.3 g/dL (33.0-36.5); MEAN CORPUSCULAR VOLUME 81.1 FL (78-98); MONOCYTES % (AUTO) 5.3 % (2-12); NEUTROPHILS # (AUTO) 13.5 X10'3 (1.8-7.7); NEUTROPHILS % (AUTO) 86.1 % (42-75); PLATELET COUNT 708 X10'3 (140-440); RED BLOOD COUNT 3.72 X10'6 (4.70-6.10); RED CELL DISTRIBUTION WIDTH 25.2 % (11.5-14.5); WHITE BLOOD COUNT 15.7 X10'3 (4.5-11.0)
[2023-11-25 07:58] LABS: ALANINE AMINOTRANSFERASE 24 U/L (12-78); ALBUMIN 1.9 G/DL (3.4-5.0); ALBUMIN/GLOBULIN RATIO 0.4 (1.1-1.5); ALKALINE PHOSPHATASE 188 IU/L (46-116); ANION GAP 6 (8-16); ASPARTATE AMINO TRANSFERASE 19 U/L (10-37); BILIRUBIN,TOTAL 0.5 MG/DL (0.1-1.0); BLOOD UREA NITROGEN 51 MG/DL (7-18); BUN/CREATININE RATIO 44.7 (10.0-20.0); CALCIUM 8.3 MG/DL (8.5-10.1); CHLORIDE 108 MMOL/L (99-107); CREATININE 1.14 MG/DL (0.60-1.10); GLUCOSE 361 MG/DL (70-104); MAGNESIUM 2.4 MG/DL (1.5-2.4); PHOSPHORUS 2.4 MG/DL (2.3-4.5); POTASSIUM 4.9 MMOL/L (3.5-5.1); SODIUM 144 MMOL/L (135-145); TOTAL CARBON DIOXIDE 29.6 MMOL/L (24-32); TOTAL PROTEIN 6.2 G/DL (6.4-8.2); eCRCL 58 ML/MIN; eGFR 64 ML/MIN
[2023-11-25] MEDS ORDERED: VANCOMYCIN IV SCH (08:00)
[2023-11-25] MEDS: atorvastatin 20mg tablet PO SCH (08:00)
[2023-11-25] MEDS ORDERED: DEXTROSE ISO OSM IV SCH (08:00)
[2023-11-25] MEDS ORDERED: docusate sod 100mg capsule PO SCH (08:00)
[2023-11-25] MEDS ORDERED: rivaroxaban 10mg tablet PO SCH (08:00)
[2023-11-25] MEDS: aspirin 81mg, enteric-coated 1 TAB TABLET.DR PO SCH (08:27)
[2023-11-25] MEDS: gabapentin 300mg capsule PO SCH (08:27)
[2023-11-25] MEDS: ferrous sulfate 325mg tablet PO SCH (08:27)
[2023-11-25] MEDS: rivaroxaban 10mg tablet PO SCH (08:27)
[2023-11-25] MEDS: multivitamins, therapeutics tablet PO SCH (08:28)
[2023-11-25] MEDS: ascorbic acid 500mg tablet PO SCH (08:28)
[2023-11-25] MEDS: tamsulosin 0.4mg capsule PO SCH (08:28)
[2023-11-25] MEDS: amLODIPine 5mg tablet PO SCH (08:29)
[2023-11-25] MEDS: vancomycin/NS 1 GM ADD-VANTAGE 250 ML IV ONE (08:34)
[2023-11-25 09:18] LABS: ANISOCYTOSIS 3+; PLATELET ESTIMATE INCREASED; TOTAL CELLS COUNTED 100
[2023-11-25 09:19] LABS: ELLIPTOCYTES FEW; HYPOCHROMASIA 1+; POLYCHROMASIA FEW; STOMATOCYTES FEW; TARGET CELLS FEW
[2023-11-25 10:52] LABS: ANTINUCLEAR ANTIBODIES Negative (Negative)
[2023-11-25] MEDS ORDERED: insulin glargine (Lantus) pen - multi-dose SQ SCH (21:00)
[2023-11-25] MEDS ORDERED: INSULIN LISPRO 100 UNIT/ML INSULN.PEN MULTI-DOSE SQ ONE (21:00)
[2023-11-25] MEDS ORDERED: sennosides 8.6mg tablet PO SCH (21:00)
[2023-11-25] MEDS ORDERED: Melatonin 3mg tablet PO SCH (21:00)
[2023-11-26 05:51] LABS: HBSAG SCREEN Negative (Negative)
[2023-11-26 12:27] LABS: A/G RATIO 0.5 (0.7-1.7); ALBUMIN 2.1 g/dL (2.9-4.4); ALPHA-1-GLOBULIN 0.4 g/dL (0.0-0.4); ALPHA-2-GLOBULIN 1.3 g/dL (0.4-1.0); BETA GLOBULIN 0.8 g/dL (0.7-1.3); GAMMA GLOBULIN 1.6 g/dL (0.4-1.8); GLOBULIN, TOTAL 4.2 g/dL (2.2-3.9); M-SPIKE Not Observed g/dL (Not Observed); PROTEIN, TOTAL, SERUM 6.3 g/dL (6.0-8.5)
== END 2023-11-25 14:20 | DRG 194 ==
LOC: ER 15:44 → UNDOADMIN 21:13 → ED HOLD 21:13 → PCU 3S 22:41
PROVIDERS: ADMIT Surgery Surgical Critical Care; ATTEND Internal Medicine
PROC: 06HY33Z Insertion of Infusion Device into Lower Vein, Percutaneous Approach (ICD-10-PCS; 2023-11-19)
PROC: 5A0935A Assistance with Respiratory Ventilation, Less than 24 Consecutive Hours, High Flow/Velocity Cannula (ICD-10-PCS; 2023-11-19)
PROC: 5A0935A Assistance with Respiratory Ventilation, Less than 24 Consecutive Hours, High Flow/Velocity Cannula (ICD-10-PCS; 2023-11-20)
PROC: 5A1D70Z Performance of Urinary Filtration, Intermittent, Less than 6 Hours Per Day (ICD-10-PCS; 2023-11-21)
PROC: 30233N1 Transfusion of Nonautologous Red Blood Cells into Peripheral Vein, Percutaneous Approach (ICD-10-PCS; 2023-11-21)
PROC: 5A0935A Assistance with Respiratory Ventilation, Less than 24 Consecutive Hours, High Flow/Velocity Cannula (ICD-10-PCS; 2023-11-21)
PROC: 05HY33Z Insertion of Infusion Device into Upper Vein, Percutaneous Approach (ICD-10-PCS; principal; 2023-11-22)
PROC: 5A1D70Z Performance of Urinary Filtration, Intermittent, Less than 6 Hours Per Day (ICD-10-PCS; 2023-11-22)
PROC: 5A0935A Assistance with Respiratory Ventilation, Less than 24 Consecutive Hours, High Flow/Velocity Cannula (ICD-10-PCS; 2023-11-22)
PROC: 5A0935A Assistance with Respiratory Ventilation, Less than 24 Consecutive Hours, High Flow/Velocity Cannula (ICD-10-PCS; 2023-11-23)
DX: I13.0 Hypertensive heart and chronic kidney disease with heart failure and stage 1 through stage 4 chronic kidney disease, or unspecified chronic kidney disease (principal); J96.01 Acute respiratory failure with hypoxia; G93.41 Metabolic encephalopathy; N17.9 Acute kidney failure, unspecified; E87.29 Other acidosis; E87.1 Hypo-osmolality and hyponatremia; D63.8 Anemia in other chronic diseases classified elsewhere; J44.0 Chronic obstructive pulmonary disease with (acute) lower respiratory infection; E11.22 Type 2 diabetes mellitus with diabetic chronic kidney disease; N18.5 Chronic kidney disease, stage 5; E11.42 Type 2 diabetes mellitus with diabetic polyneuropathy; I50.33 Acute on chronic diastolic (congestive) heart failure; D64.9 Anemia, unspecified; E11.65 Type 2 diabetes mellitus with hyperglycemia; N39.0 Urinary tract infection, site not specified; I25.10 Atherosclerotic heart disease of native coronary artery without angina pectoris; D50.9 Iron deficiency anemia, unspecified; I48.91 Unspecified atrial fibrillation; M86.9 Osteomyelitis, unspecified; E11.69 Type 2 diabetes mellitus with other specified complication; E11.51 Type 2 diabetes mellitus with diabetic peripheral angiopathy without gangrene; I25.2 Old myocardial infarction; Z79.01 Long term (current) use of anticoagulants; Z79.4 Long term (current) use of insulin; Z79.899 Other long term (current) drug therapy; Z83.3 Family history of diabetes mellitus; Z87.891 Personal history of nicotine dependence; Z95.810 Presence of automatic (implantable) cardiac defibrillator
CPT/HCPCS: 36410; 36415; 36430; 36600; 71045; 76937; 80048; 80053; 80202; 81001; 82140; 82272; 82803; 82948; 83605; 83690; 83735; 83880; 84100; 84155; 84165; 84439; 84443; 84484; 85007; 85008; 85018; 85025; 85027; 86038; 86160; 86885; 86900; 86901; 86920; 87040; 87070; 87075; 87088; 87340; 92508; 92616; 93005; 93971; 94640; 94760; 99291; A4314; A4615; A6213; A6250; A6253; A6258; A6446; A6449; A6590; C1751; C1752; E1594; G0257; G0378; J0131; J0696; J1644; J1815; J1940; J2150; J2250; J2270; J2543; J2919; J3360; J3370; J3490; J7030; J7040; J7120; P9016; Q4081

== ENCOUNTER 2023-12-10 08:14 | Inpatient (IN) | payer MEDICAID ==
[~2023-12-10] VITALS: Ht 167.6 cm; Wt 65.0 kg
[2023-12-10] VITALS (12 sets, daily range): BP systolic 108–125; BP diastolic 52–66; PULSE 84–101; RESP 14–20; TEMP 97.1–98; O2SAT 91–98
[~2023-12-10 08:14] MED LIST changes: -AMLO10TA; +ATOR20TA66 PO; -CARB100T50 PO; -CARV6.2553 PO; +CIPR250T4 PO; -CIPR750T14 PO; -CLON0.1T2 PO; +FLO0.4C PO; +GABA300C PO; -GABA600T13 PO; -HYDR-3972 PO; -LISI5TAB22 PO; +MELA3CAP2 PO; +MULT-1085 PO; +ONDA4TAB12 PO; +OXYC-150 PO; -TEMA15CA5 PO; -VANC1VIA38 IV; +VANC750F IV
[2023-12-10 08:44] LABS: EOSINOPHILS # (AUTO) 0.1 X10'3 (0-0.9); EOSINOPHILS % (AUTO) 0.5 % (0-6); LYMPHOCYTES # (AUTO) 1.8 X10'3 (1.1-4.8); MEAN CORPUSCULAR HEMOGLOBIN 27.7 PG (27.0-31.0); MEAN CORPUSCULAR HGB CONC 33.2 g/dL (33.0-36.5); MEAN CORPUSCULAR VOLUME 83.3 FL (78-98); MEAN PLATELET VOLUME 8.5 FL (7.4-10.4); MONOCYTES # (AUTO) 0.6 X10'3 (0-0.9); PLATELET COUNT 363 X10'3 (140-440); RED BLOOD COUNT 2.34 X10'6 (4.70-6.10)
[2023-12-10 08:46] LABS: BASOPHILS # (AUTO) 0.1 X10'3 (0-0.2); BASOPHILS % (AUTO) 0.9 % (0-1); LYMPHOCYTES % (AUTO) 17.9 % (21-51); MONOCYTES % (AUTO) 5.7 % (2-12); NEUTROPHILS # (AUTO) 7.6 X10'3 (1.8-7.7); RED CELL DISTRIBUTION WIDTH 23.1 % (11.5-14.5); WHITE BLOOD COUNT 10.1 X10'3 (4.5-11.0)
[2023-12-10 08:50] LABS: HEMATOCRIT 19.5 % (42.0-52.0); HEMOGLOBIN 6.5 g/dl (14.0-17.9)
[2023-12-10 09:06] LABS: INR 1.2 INR; PROTHROMBIN TIME 12.2 SECONDS (9.0-12.0)
[2023-12-10 09:09] LABS: ALANINE AMINOTRANSFERASE 143 U/L (12-78); ALBUMIN 2.5 G/DL (3.4-5.0); ALBUMIN/GLOBULIN RATIO 0.6 (1.1-1.5); ALKALINE PHOSPHATASE 155 IU/L (46-116); ANION GAP 7 (8-16); ASPARTATE AMINO TRANSFERASE 139 U/L (10-37); BILIRUBIN,TOTAL 0.5 MG/DL (0.1-1.0); BLOOD UREA NITROGEN 129 MG/DL (7-18); BUN/CREATININE RATIO 73.3 (10.0-20.0); CALCIUM 8.3 MG/DL (8.5-10.1); CHLORIDE 102 MMOL/L (99-107); CREATININE 1.76 MG/DL (0.60-1.10); GLUCOSE 182 MG/DL (70-104); POTASSIUM 4.7 MMOL/L (3.5-5.1); SODIUM 139 MMOL/L (135-145); TOTAL CARBON DIOXIDE 29.9 MMOL/L (24-32); TOTAL PROTEIN 6.8 G/DL (6.4-8.2); eCRCL 39 ML/MIN; eGFR 39 ML/MIN
[2023-12-10] MEDS ORDERED: mag hydrox/Alum hydrox/simeth 30ml oral suspension PO PRN (10:00)
[2023-12-10] MEDS ORDERED: albuterol 2.5 MG/3 ML nebule NEB PRN (10:00)
[2023-12-10] MEDS ORDERED: magnesium 4gm in 100ml NS 100 ML IV PRN (10:00)
[2023-12-10] MEDS ORDERED: ipratropium/albuterol 3ml nebule NEB PRN (10:00)
[2023-12-10] MEDS ORDERED: potassium Cl 20 mEq SR tablet PO PRN ×2 (10:00)
[2023-12-10] MEDS ORDERED: magnesium 2GM in 50ml NS 50 ML IV PRN (10:00)
[2023-12-10] MEDS ORDERED: pantoprazole 40mg IV 80 MG in normal saline 100ml IV soln 100 ML IV ONE (10:15)
[2023-12-10] MEDS: pantoprazole 40MG/NS 100ML BAG 100 ML IV SCH (10:36)
[2023-12-10] MEDS: pantoprazole 40 MG vial IV ONE (10:37)
[2023-12-10] MEDS ORDERED: LIDOcaine 2% Viscous 15ml cup ONE (16:07)
[2023-12-10] MEDS ORDERED: fentaNYL/PF 50MCG/1 ML 2ML syringe ONE (16:07)
[2023-12-10] MEDS ORDERED: diphenhydrAMINE 50 mg/ml inj ONE (16:07)
[2023-12-10] MEDS ORDERED: MIDAZolam 1 MG/ML 5ML VIAL ONE (16:07)
[2023-12-10] MEDS ORDERED: glucagon, human recombinant 1mg kit SUBCUT PRN (18:55)
[2023-12-10] MEDS ORDERED: dextrose 50%-water 50ml dispensing syringe IV PRN ×2 (18:55)
[2023-12-10] MEDS ORDERED: DEXTROSE 15 GM of carb/4 tabs (each vial/BOTTLE has 4 tablets) PO PRN ×2 (18:55)
[2023-12-10] MEDS: K and/or MAG REPLACEMENT MC SCH (20:00)
[2023-12-10] MEDS: docusate sod 100mg capsule PO SCH (20:51)
[2023-12-10 21:19] LABS: BASOPHILS # (AUTO) 0.1 X10'3 (0-0.2); BASOPHILS % (AUTO) 0.9 % (0-1); EOSINOPHILS % (AUTO) 0.2 % (0-6); HEMATOCRIT 25.3 % (42.0-52.0); HEMOGLOBIN 8.3 g/dl (14.0-17.9); LYMPHOCYTES # (AUTO) 1.5 X10'3 (1.1-4.8); MEAN CORPUSCULAR HEMOGLOBIN 27.2 PG (27.0-31.0); MEAN CORPUSCULAR HGB CONC 32.7 g/dL (33.0-36.5); MEAN CORPUSCULAR VOLUME 83.2 FL (78-98); MEAN PLATELET VOLUME 8.5 FL (7.4-10.4); MONOCYTES # (AUTO) 0.9 X10'3 (0-0.9); MONOCYTES % (AUTO) 6.3 % (2-12); NEUTROPHILS # (AUTO) 12.1 X10'3 (1.8-7.7); NEUTROPHILS % (AUTO) 82.6 % (42-75); PLATELET COUNT 378 X10'3 (140-440); RED BLOOD COUNT 3.04 X10'6 (4.70-6.10); RED CELL DISTRIBUTION WIDTH 21.6 % (11.5-14.5); WHITE BLOOD COUNT 14.7 X10'3 (4.5-11.0)
[2023-12-10] MEDS: INSULIN LISPRO 100 UNIT/ML INSULN.PEN MULTI-DOSE SQ SCH (21:37)
[2023-12-10] MEDS: morphine 2 MG/ML inj. syringe IV PRN (21:39)
[2023-12-10 22:36] LABS: ANISOCYTOSIS 3+; PLATELET ESTIMATE NORMAL; POLYCHROMASIA FEW; STOMATOCYTES FEW
[2023-12-10 23:08] LABS: ABG BASE EXCESS -0.6 mmol/L (-2.0-2.0); ABG HCO3 25.4 mmol/L (22.0-26.0); ABG OXYGEN SATURATION 87.9 % (94-97); ABG PCO2 (T) 47.7 mmHg (35.0-48.0); ABG PH (T) 7.342 (7.340-7.440); ALLEN'S TEST Modified; FCOHb 0.5 % (0.0-3.9); FLOW 5 L/min; FMetHb 0.3 % (0.0-1.5); FO2Hb 87.2 % (94-97); MODE NASAL CANNULA; PATIENT TEMPERATURE 36.5; TOTAL HEMOGLOBIN 9.3 G/dl (14.0-17.9)
[2023-12-10] MEDS: furosemide 20 MG/2 ML vial IV ONE (23:22)
[2023-12-10 23:25] LABS: BASOPHILS % (AUTO) 0.3 % (0-1); EOSINOPHILS % (AUTO) 0 % (0-6); HEMATOCRIT 24.6 % (42.0-52.0); HEMOGLOBIN 8.1 g/dl (14.0-17.9); LYMPHOCYTES # (AUTO) 1.1 X10'3 (1.1-4.8); MEAN CORPUSCULAR HEMOGLOBIN 27.6 PG (27.0-31.0); MEAN CORPUSCULAR HGB CONC 32.8 g/dL (33.0-36.5); MEAN CORPUSCULAR VOLUME 84.1 FL (78-98); MEAN PLATELET VOLUME 8.2 FL (7.4-10.4); MONOCYTES # (AUTO) 0.8 X10'3 (0-0.9); NEUTROPHILS # (AUTO) 12.1 X10'3 (1.8-7.7); NEUTROPHILS % (AUTO) 85.7 % (42-75); PLATELET COUNT 366 X10'3 (140-440); RED BLOOD COUNT 2.92 X10'6 (4.70-6.10); RED CELL DISTRIBUTION WIDTH 21.2 % (11.5-14.5); WHITE BLOOD COUNT 14.2 X10'3 (4.5-11.0)
[2023-12-10 23:36] LABS: ALANINE AMINOTRANSFERASE 149 U/L (12-78); ALBUMIN 2.6 G/DL (3.4-5.0); ALBUMIN/GLOBULIN RATIO 0.6 (1.1-1.5); ALKALINE PHOSPHATASE 149 IU/L (46-116); ANION GAP 8 (8-16); ASPARTATE AMINO TRANSFERASE 113 U/L (10-37); BILIRUBIN,TOTAL 0.7 MG/DL (0.1-1.0); BLOOD UREA NITROGEN 109 MG/DL (7-18); BUN/CREATININE RATIO 66.1 (10.0-20.0); CALCIUM 8.2 MG/DL (8.5-10.1); CHLORIDE 104 MMOL/L (99-107); CREATININE 1.65 MG/DL (0.60-1.10); GLUCOSE 234 MG/DL (70-104); POTASSIUM 4.2 MMOL/L (3.5-5.1); SODIUM 140 MMOL/L (135-145); TOTAL CARBON DIOXIDE 27.6 MMOL/L (24-32); TOTAL PROTEIN 7.3 G/DL (6.4-8.2); eCRCL 40 ML/MIN; eGFR 42 ML/MIN
[2023-12-11] VITALS (14 sets, daily range): BP systolic 115–133; BP diastolic 55–74; PULSE 74–103; RESP 18–26; TEMP 97.2–98; O2SAT 90–98
[2023-12-11] MEDS: pantoprazole 40MG/NS 100ML BAG 100 ML IV SCH (02:47)
[2023-12-11] MEDS: acetaminophen 325mg tablet PO PRN (03:27)
[2023-12-11 03:41] LABS: BASOPHILS # (AUTO) 0.1 X10'3 (0-0.2); BASOPHILS % (AUTO) 0.7 % (0-1); EOSINOPHILS % (AUTO) 0 % (0-6); HEMATOCRIT 25.3 % (42.0-52.0); HEMOGLOBIN 8.4 g/dl (14.0-17.9); LYMPHOCYTES # (AUTO) 2.1 X10'3 (1.1-4.8); MEAN CORPUSCULAR HEMOGLOBIN 27.9 PG (27.0-31.0); MEAN CORPUSCULAR HGB CONC 33.1 g/dL (33.0-36.5); MEAN CORPUSCULAR VOLUME 84.2 FL (78-98); MEAN PLATELET VOLUME 8.4 FL (7.4-10.4); MONOCYTES # (AUTO) 0.7 X10'3 (0-0.9); NEUTROPHILS % (AUTO) 80.3 % (42-75); PLATELET COUNT 409 X10'3 (140-440); RED BLOOD COUNT 3.01 X10'6 (4.70-6.10); RED CELL DISTRIBUTION WIDTH 21.8 % (11.5-14.5); WHITE BLOOD COUNT 14.9 X10'3 (4.5-11.0)
[2023-12-11 04:00] LABS: ALANINE AMINOTRANSFERASE 150 U/L (12-78); ALBUMIN 2.7 G/DL (3.4-5.0); ALBUMIN/GLOBULIN RATIO 0.6 (1.1-1.5); ALKALINE PHOSPHATASE 153 IU/L (46-116); ANION GAP 9 (8-16); ASPARTATE AMINO TRANSFERASE 102 U/L (10-37); BILIRUBIN,TOTAL 0.7 MG/DL (0.1-1.0); BLOOD UREA NITROGEN 108 MG/DL (7-18); BUN/CREATININE RATIO 67.1 (10.0-20.0); CALCIUM 8.5 MG/DL (8.5-10.1); CHLORIDE 104 MMOL/L (99-107); CREATININE 1.61 MG/DL (0.60-1.10); GLUCOSE 212 MG/DL (70-104); MAGNESIUM 2.8 MG/DL (1.5-2.4); SODIUM 140 MMOL/L (135-145); TOTAL CARBON DIOXIDE 27.4 MMOL/L (24-32); TOTAL PROTEIN 7.4 G/DL (6.4-8.2); eCRCL 41 ML/MIN; eGFR 43 ML/MIN
[2023-12-11] MEDS: ipratropium/albuterol 3ml nebule NEB ONE (05:53)
[2023-12-11] MEDS: furosemide 10 MG/1 ML 10ml inj IV SCH (10:54)
[2023-12-11] MEDS: Melatonin 3mg tablet PO SCH (20:47)
[2023-12-12] VITALS (13 sets, daily range): BP systolic 115–137; BP diastolic 47–68; PULSE 81–101; RESP 15–28; TEMP 97.4–98.3; O2SAT 94–99
[2023-12-12] MEDS: morphine 2 MG/ML inj. syringe IV PRN (01:23)
[2023-12-12 06:43] LABS: BASOPHILS # (AUTO) 0.1 X10'3 (0-0.2); BASOPHILS % (AUTO) 1.1 % (0-1); EOSINOPHILS % (AUTO) 0.1 % (0-6); HEMATOCRIT 26.7 % (42.0-52.0); HEMOGLOBIN 8.9 g/dl (14.0-17.9); LYMPHOCYTES # (AUTO) 1.6 X10'3 (1.1-4.8); LYMPHOCYTES % (AUTO) 14.9 % (21-51); MEAN CORPUSCULAR HEMOGLOBIN 28.5 PG (27.0-31.0); MEAN CORPUSCULAR HGB CONC 33.5 g/dL (33.0-36.5); MEAN PLATELET VOLUME 8.3 FL (7.4-10.4); MONOCYTES # (AUTO) 0.6 X10'3 (0-0.9); MONOCYTES % (AUTO) 5.9 % (2-12); NEUTROPHILS # (AUTO) 8.3 X10'3 (1.8-7.7); PLATELET COUNT 447 X10'3 (140-440); RED BLOOD COUNT 3.13 X10'6 (4.70-6.10); RED CELL DISTRIBUTION WIDTH 21.4 % (11.5-14.5); WHITE BLOOD COUNT 10.6 X10'3 (4.5-11.0)
[2023-12-12 06:57] LABS: ALANINE AMINOTRANSFERASE 115 U/L (12-78); ALBUMIN 2.7 G/DL (3.4-5.0); ALBUMIN/GLOBULIN RATIO 0.6 (1.1-1.5); ALKALINE PHOSPHATASE 139 IU/L (46-116); ANION GAP 11 (8-16); ASPARTATE AMINO TRANSFERASE 53 U/L (10-37); BILIRUBIN,TOTAL 0.9 MG/DL (0.1-1.0); BLOOD UREA NITROGEN 78 MG/DL (7-18); BUN/CREATININE RATIO 63.9 (10.0-20.0); CALCIUM 8.5 MG/DL (8.5-10.1); CHLORIDE 106 MMOL/L (99-107); CREATININE 1.22 MG/DL (0.60-1.10); GLUCOSE 198 MG/DL (70-104); MAGNESIUM 2.4 MG/DL (1.5-2.4); POTASSIUM 3.2 MMOL/L (3.5-5.1); SODIUM 146 MMOL/L (135-145); TOTAL CARBON DIOXIDE 29.4 MMOL/L (24-32); TOTAL PROTEIN 7.5 G/DL (6.4-8.2); eCRCL 54 ML/MIN; eGFR 60 ML/MIN
[2023-12-12] MEDS: gabapentin 300mg capsule PO SCH (08:05)
[2023-12-12] MEDS: multivitamins, therapeutics tablet PO SCH (08:05)
[2023-12-12] MEDS: ondansetron/PF 4mg/2ml inj IV PRN (08:40)
[2023-12-12] MEDS: potassium Cl 40MEQ/1/2NS 520ml 520 ML IV PRN (09:57)
[2023-12-12] MEDS: insulin glargine (Lantus) pen - multi-dose SQ SCH (21:52)
[2023-12-13] VITALS (10 sets, daily range): BP systolic 122–140; BP diastolic 54–74; PULSE 82–97; RESP 14–19; TEMP 97.2–98.3; O2SAT 95–99
[2023-12-13 07:38] LABS: BASOPHILS # (AUTO) 0.1 X10'3 (0-0.2); BASOPHILS % (AUTO) 1.5 % (0-1); EOSINOPHILS # (AUTO) 0.1 X10'3 (0-0.9); EOSINOPHILS % (AUTO) 0.8 % (0-6); HEMATOCRIT 25.4 % (42.0-52.0); HEMOGLOBIN 8.3 g/dl (14.0-17.9); LYMPHOCYTES # (AUTO) 1.7 X10'3 (1.1-4.8); LYMPHOCYTES % (AUTO) 19.7 % (21-51); MEAN CORPUSCULAR HEMOGLOBIN 28.4 PG (27.0-31.0); MEAN CORPUSCULAR HGB CONC 32.9 g/dL (33.0-36.5); MEAN CORPUSCULAR VOLUME 86.2 FL (78-98); MEAN PLATELET VOLUME 8.3 FL (7.4-10.4); MONOCYTES # (AUTO) 0.6 X10'3 (0-0.9); NEUTROPHILS # (AUTO) 6.2 X10'3 (1.8-7.7); PLATELET COUNT 458 X10'3 (140-440); RED BLOOD COUNT 2.94 X10'6 (4.70-6.10); RED CELL DISTRIBUTION WIDTH 22.3 % (11.5-14.5); WHITE BLOOD COUNT 8.8 X10'3 (4.5-11.0)
[2023-12-13 08:00] LABS: ALANINE AMINOTRANSFERASE 85 U/L (12-78); ALBUMIN 2.5 G/DL (3.4-5.0); ALBUMIN/GLOBULIN RATIO 0.6 (1.1-1.5); ALKALINE PHOSPHATASE 113 IU/L (46-116); ANION GAP 5 (8-16); ASPARTATE AMINO TRANSFERASE 37 U/L (10-37); BILIRUBIN,TOTAL 0.7 MG/DL (0.1-1.0); BLOOD UREA NITROGEN 57 MG/DL (7-18); CALCIUM 8.1 MG/DL (8.5-10.1); CHLORIDE 104 MMOL/L (99-107); CREATININE 1.14 MG/DL (0.60-1.10); GLUCOSE 178 MG/DL (70-104); POTASSIUM 3.6 MMOL/L (3.5-5.1); SODIUM 140 MMOL/L (135-145); TOTAL CARBON DIOXIDE 30.8 MMOL/L (24-32); TOTAL PROTEIN 6.9 G/DL (6.4-8.2); eCRCL 58 ML/MIN; eGFR 64 ML/MIN
[2023-12-13 08:13] LABS: ANISOCYTOSIS 3+; HYPOCHROMASIA 1+; PLATELET ESTIMATE INCREASED; POLYCHROMASIA 1+
[2023-12-13 08:14] LABS: ROULEAUX 1+; SPHEROCYTES FEW
[2023-12-13] MEDS: gabapentin 300mg capsule PO SCH (20:28)
[2023-12-14] VITALS (9 sets, daily range): BP systolic 124–144; BP diastolic 57–72; PULSE 72–100; RESP 12–20; TEMP 97.3–98.6; O2SAT 96–100
[2023-12-14 06:01] LABS: ALANINE AMINOTRANSFERASE 73 U/L (12-78); ALBUMIN 2.4 G/DL (3.4-5.0); ALBUMIN/GLOBULIN RATIO 0.5 (1.1-1.5); ALKALINE PHOSPHATASE 107 IU/L (46-116); ANION GAP 3 (8-16); ASPARTATE AMINO TRANSFERASE 31 U/L (10-37); BILIRUBIN,TOTAL 0.7 MG/DL (0.1-1.0); BLOOD UREA NITROGEN 44 MG/DL (7-18); CALCIUM 8.1 MG/DL (8.5-10.1); CHLORIDE 104 MMOL/L (99-107); GLUCOSE 124 MG/DL (70-104); MAGNESIUM 1.8 MG/DL (1.5-2.4); POTASSIUM 3.4 MMOL/L (3.5-5.1); SODIUM 141 MMOL/L (135-145); TOTAL CARBON DIOXIDE 33.9 MMOL/L (24-32); TOTAL PROTEIN 6.8 G/DL (6.4-8.2); eCRCL 66 ML/MIN; eGFR 75 ML/MIN
[2023-12-14 06:03] LABS: BASOPHILS # (AUTO) 0.1 X10'3 (0-0.2); HEMOGLOBIN 8.5 g/dl (14.0-17.9); LYMPHOCYTES # (AUTO) 1.4 X10'3 (1.1-4.8); MONOCYTES # (AUTO) 0.8 X10'3 (0-0.9); WHITE BLOOD COUNT 9.9 X10'3 (4.5-11.0)
[2023-12-14 06:04] LABS: EOSINOPHILS # (AUTO) 0.3 X10'3 (0-0.9); EOSINOPHILS % (AUTO) 2.9 % (0-6); HEMATOCRIT 26.1 % (42.0-52.0); MEAN CORPUSCULAR HGB CONC 32.6 g/dL (33.0-36.5); MEAN CORPUSCULAR VOLUME 85.8 FL (78-98); NEUTROPHILS # (AUTO) 7.4 X10'3 (1.8-7.7); NEUTROPHILS % (AUTO) 74.1 % (42-75); PLATELET COUNT 484 X10'3 (140-440); RED BLOOD COUNT 3.05 X10'6 (4.70-6.10); RED CELL DISTRIBUTION WIDTH 21.5 % (11.5-14.5)
[2023-12-14] MEDS: HYDROcodone/acetaminophen 10/325mg tab PO PRN (11:51)
[2023-12-14] MEDS: ferrous sulfate 325mg tablet PO SCH (17:52)
[2023-12-14] MEDS: pantoprazole 40MG/NS 100ML BAG 100 ML IV SCH (22:51)
[2023-12-15] VITALS (11 sets, daily range): BP systolic 118–142; BP diastolic 59–76; PULSE 83–92; RESP 14–20; TEMP 97.3–98.3; O2SAT 73–100
[2023-12-15 06:49] LABS: BASOPHILS # (AUTO) 0.1 X10'3 (0-0.2); BASOPHILS % (AUTO) 1.3 % (0-1); EOSINOPHILS # (AUTO) 0.3 X10'3 (0-0.9); EOSINOPHILS % (AUTO) 3.7 % (0-6); HEMOGLOBIN 8.6 g/dl (14.0-17.9); LYMPHOCYTES # (AUTO) 1.5 X10'3 (1.1-4.8); LYMPHOCYTES % (AUTO) 16.2 % (21-51); MEAN CORPUSCULAR HEMOGLOBIN 27.8 PG (27.0-31.0); MEAN CORPUSCULAR VOLUME 84.3 FL (78-98); MEAN PLATELET VOLUME 7.7 FL (7.4-10.4); MONOCYTES # (AUTO) 0.6 X10'3 (0-0.9); NEUTROPHILS # (AUTO) 6.6 X10'3 (1.8-7.7); NEUTROPHILS % (AUTO) 71.8 % (42-75); PLATELET COUNT 475 X10'3 (140-440); RED BLOOD COUNT 3.09 X10'6 (4.70-6.10); RED CELL DISTRIBUTION WIDTH 21.8 % (11.5-14.5); WHITE BLOOD COUNT 9.2 X10'3 (4.5-11.0)
[2023-12-15 06:59] LABS: ALANINE AMINOTRANSFERASE 58 U/L (12-78); ALBUMIN 2.4 G/DL (3.4-5.0); ALBUMIN/GLOBULIN RATIO 0.5 (1.1-1.5); ALKALINE PHOSPHATASE 107 IU/L (46-116); ANION GAP 5 (8-16); ASPARTATE AMINO TRANSFERASE 33 U/L (10-37); BILIRUBIN,TOTAL 0.7 MG/DL (0.1-1.0); BLOOD UREA NITROGEN 29 MG/DL (7-18); BUN/CREATININE RATIO 28.7 (10.0-20.0); CALCIUM 8.3 MG/DL (8.5-10.1); CHLORIDE 103 MMOL/L (99-107); CREATININE 1.01 MG/DL (0.60-1.10); GLUCOSE 78 MG/DL (70-104); MAGNESIUM 1.7 MG/DL (1.5-2.4); POTASSIUM 3.4 MMOL/L (3.5-5.1); SODIUM 140 MMOL/L (135-145); TOTAL CARBON DIOXIDE 32.4 MMOL/L (24-32); TOTAL PROTEIN 6.9 G/DL (6.4-8.2); eCRCL 66 ML/MIN; eGFR 74 ML/MIN
[2023-12-15] MEDS: pantoprazole 40 MG vial IV SCH (07:59)
[2023-12-15] MEDS ORDERED: magnesium 2GM in 50ml NS 50 ML IV PRN ×2 (10:00→18:15)
[2023-12-15] MEDS ORDERED: potassium Cl 20 mEq SR tablet PO PRN ×2 (10:00→18:15)
[2023-12-15] MEDS ORDERED: magnesium 4gm in 100ml NS 100 ML IV PRN ×2 (10:00→18:15)
[2023-12-15] MEDS ORDERED: potassium Cl 40MEQ/1/2NS 520ml 520 ML IV PRN ×2 (10:00→18:15)
[2023-12-15 10:42] LABS: PLATELET ESTIMATE INCREASED
[2023-12-15 10:43] LABS: ANISOCYTOSIS 3+; HYPOCHROMASIA 1+; POLYCHROMASIA 1+
[2023-12-15 10:44] LABS: SCHISTOCYTES FEW
[2023-12-15] MEDS: potassium Cl 20 mEq SR tablet PO PRN ×2 (11:00→20:27)
[2023-12-15] MEDS: HYDROcodone/acetaminophen 5mg/325mg tablet PO PRN (12:53)
[2023-12-15] MEDS: lactose-reduced food (Ensure Enlive) - 237ml bottle PO SCH (12:59)
[2023-12-15] MEDS: K and/or MAG REPLACEMENT MC SCH (20:00)
[2023-12-15] MEDS: furosemide 20 MG/2 ML vial IV SCH (20:27)
[2023-12-16] VITALS (8 sets, daily range): BP systolic 118–132; BP diastolic 57–64; PULSE 74–90; RESP 14–18; TEMP 97.2–98.3; O2SAT 97–100
[2023-12-16 06:36] LABS: BASOPHILS # (AUTO) 0.1 X10'3 (0-0.2); BASOPHILS % (AUTO) 1.3 % (0-1); EOSINOPHILS # (AUTO) 0.5 X10'3 (0-0.9); EOSINOPHILS % (AUTO) 5.6 % (0-6); HEMATOCRIT 25.2 % (42.0-52.0); HEMOGLOBIN 8.2 g/dl (14.0-17.9); LYMPHOCYTES # (AUTO) 1.7 X10'3 (1.1-4.8); LYMPHOCYTES % (AUTO) 19.1 % (21-51); MEAN CORPUSCULAR HEMOGLOBIN 27.5 PG (27.0-31.0); MEAN CORPUSCULAR HGB CONC 32.6 g/dL (33.0-36.5); MEAN CORPUSCULAR VOLUME 84.4 FL (78-98); MEAN PLATELET VOLUME 7.6 FL (7.4-10.4); MONOCYTES # (AUTO) 0.6 X10'3 (0-0.9); MONOCYTES % (AUTO) 7.3 % (2-12); NEUTROPHILS # (AUTO) 5.8 X10'3 (1.8-7.7); NEUTROPHILS % (AUTO) 66.7 % (42-75); PLATELET COUNT 466 X10'3 (140-440); RED BLOOD COUNT 2.99 X10'6 (4.70-6.10); RED CELL DISTRIBUTION WIDTH 21.5 % (11.5-14.5); WHITE BLOOD COUNT 8.7 X10'3 (4.5-11.0)
[2023-12-16 06:59] LABS: ALANINE AMINOTRANSFERASE 57 U/L (12-78); ALBUMIN 2.2 G/DL (3.4-5.0); ALBUMIN/GLOBULIN RATIO 0.5 (1.1-1.5); ALKALINE PHOSPHATASE 110 IU/L (46-116); ANION GAP 3 (8-16); ASPARTATE AMINO TRANSFERASE 37 U/L (10-37); BILIRUBIN,TOTAL 0.6 MG/DL (0.1-1.0); BLOOD UREA NITROGEN 28 MG/DL (7-18); BUN/CREATININE RATIO 26.7 (10.0-20.0); CHLORIDE 104 MMOL/L (99-107); CREATININE 1.05 MG/DL (0.60-1.10); GLUCOSE 104 MG/DL (70-104); MAGNESIUM 1.6 MG/DL (1.5-2.4); POTASSIUM 4.2 MMOL/L (3.5-5.1); SODIUM 141 MMOL/L (135-145); TOTAL CARBON DIOXIDE 34.4 MMOL/L (24-32); TOTAL PROTEIN 6.5 G/DL (6.4-8.2); eCRCL 63 ML/MIN; eGFR 71 ML/MIN
[2023-12-16] MEDS ORDERED: PANT-47 PO (16:01)
[2023-12-16] MEDS ORDERED: FURO-150 PO (16:01)
[2023-12-16] MEDS ORDERED: LANTUS SQ (16:38)
[2023-12-16] MEDS ORDERED: INSU100I8 SQ (16:38)
== END 2023-12-16 18:22 | disposition home health service (06) | DRG 241 ==
LOC: ER 08:15 → ED HOLD 10:13 → PCU 3S 12:13
PROVIDERS: ADMIT Family Medicine; ATTEND Family Medicine
PROC: 30233N1 Transfusion of Nonautologous Red Blood Cells into Peripheral Vein, Percutaneous Approach (ICD-10-PCS; principal; 2023-12-10)
PROC: 0DB68ZX Excision of Stomach, Via Natural or Artificial Opening Endoscopic, Diagnostic (ICD-10-PCS; 2023-12-10)
PROC: 5A0935A Assistance with Respiratory Ventilation, Less than 24 Consecutive Hours, High Flow/Velocity Cannula (ICD-10-PCS; 2023-12-11)
PROC: 0W9B3ZZ Drainage of Left Pleural Cavity, Percutaneous Approach (ICD-10-PCS; 2023-12-16)
DX: K29.01 Acute gastritis with bleeding (principal); E43 Unspecified severe protein-calorie malnutrition; I48.20 Chronic atrial fibrillation, unspecified; M86.661 Other chronic osteomyelitis, right tibia and fibula; I13.0 Hypertensive heart and chronic kidney disease with heart failure and stage 1 through stage 4 chronic kidney disease, or unspecified chronic kidney disease; E11.22 Type 2 diabetes mellitus with diabetic chronic kidney disease; D62 Acute posthemorrhagic anemia; I50.42 Chronic combined systolic (congestive) and diastolic (congestive) heart failure; J91.8 Pleural effusion in other conditions classified elsewhere; E11.42 Type 2 diabetes mellitus with diabetic polyneuropathy; J44.9 Chronic obstructive pulmonary disease, unspecified; E11.69 Type 2 diabetes mellitus with other specified complication; M86.662 Other chronic osteomyelitis, left tibia and fibula; G89.29 Other chronic pain; Z68.23 Body mass index [BMI] 23.0-23.9, adult; M54.9 Dorsalgia, unspecified; N18.9 Chronic kidney disease, unspecified; E11.51 Type 2 diabetes mellitus with diabetic peripheral angiopathy without gangrene; I25.10 Atherosclerotic heart disease of native coronary artery without angina pectoris; Z79.01 Long term (current) use of anticoagulants; Z79.4 Long term (current) use of insulin; I25.2 Old myocardial infarction; Z83.3 Family history of diabetes mellitus; Z95.810 Presence of automatic (implantable) cardiac defibrillator; Z91.011 Allergy to milk products; Z90.49 Acquired absence of other specified parts of digestive tract; Z87.891 Personal history of nicotine dependence
CPT/HCPCS: 32555; 36415; 36430; 36600; 43239; 71045; 71046; 71250; 80053; 82803; 82948; 83605; 83735; 83880; 85008; 85018; 85025; 85610; 86885; 86900; 86901; 86920; 87081; 93005; 93306; 94640; 94760; 94799; 97110; 97116; 97161; 97530; 99152; 99285; A4615; A4620; A5200; A6212; A6213; A6250; A6446; A6449; C1729; C9113; G0378; J1200; J1815; J1940; J2250; J2270; J2405; J3010; J3480; J7030; J7050; P9016